=== PATIENT | female | born 1935 | race Caucasian/White ===

== ENCOUNTER 2019-01-16 12:42 | Inpatient (IN) ==
[2019-01-16] MEDS ORDERED: PANTOprazole 40 MG in SYRINGE 0 ML IV ONE (14:40)
[2019-01-16] MEDS ORDERED: SODIUM CHLORIDE 0.9% 1000ML 1,000 ML IV SCH (14:45)
[2019-01-16 15:16] LABS: Basophils # (auto) 0.02 K/uL (0-0.2); Basophils % (auto) 0.2 %; Eosinophils # (auto) 0.01 K/uL (0-0.5); Eosinophils % (auto) 0.1 %; Hematocrit (blood only) 43.1 % (37-47); Immature Granulocytes # (auto) 0.04 K/uL (0.00-0.02); Immature Granulocytes % (auto) 0.3 %; Lymphocytes # (auto) 0.77 K/uL (1.2-3.4); Lymphocytes % (auto) 5.9 %; Mean Corpuscular Hgb Conc 32.5 g/dL (32-36); Mean Corpuscular Volume 86.5 fL (80-100); Mean Platelet Volume 10.5 fL (7.4-10.4); Monocytes # (auto) 0.51 K/uL (0.11-0.59); Monocytes % (auto) 3.9 %; Neutrophils # (auto) 11.64 K/uL (1.4-6.5); Neutrophils % (auto) 89.6 %; Platelet Count 279 K/uL (130-400); RDW Coefficient of Variation 14.5 % (11.5-14.5); RDW Standard Deviation 45.6 fL (36.4-46.3); Red Blood Count 4.98 M/uL (4.2-5.4); White Blood Count 12.99 K/uL (4.8-10.8)
[2019-01-16 15:38] LABS: Albumin Level 3.3 gm/dl (3.4-5.0); BUN Creatinine Ratio 17.2 (10-20); Calcium 10.6 mg/dl (8.5-10.1); Creatinine Clr Calc Pharmacy 26.6 ml/min; Est GFR (African American) 39.8; Est GFR (Non-African American) 34.4; Magnesium 2.2 mg/dl (1.8-2.4); Potassium 4.4 mmol/L (3.5-5.1)
[2019-01-16 15:44] LABS: Albumin Globulin Ratio 0.8 (0.9-2); Bilirubin,Total 0.5 mg/dl (0.2-1); Total Protein 7.3 gm/dl (6.4-8.2); Troponin I 0.027 ng/ml (0-0.045)
[2019-01-16] MEDS ORDERED: IOVERSOL 100ml IV PRN (19:10)
--- NOTE | 2019-01-16 19:18 | CT Scan Report ---
CT abd pelvis oral and IV con CT DOSE: 314.81 mGy.cm HISTORY: weight loss, recurrent vomiting TECHNIQUE: Multiaxial CT images of the abdomen and pelvis were performed following the use of intrave nous and oral contrast. A dose lowering technique was utilized adhering to the principles of ALARA. COMPARISON STUDY: None. FINDINGS: Diffuse bibasilar bronchiectatic change. Liver spleen and pancreas are unremarkable. Prior cholecystectomy. Normal adrenal glands. Several small parapelvic and/or cortical cysts of the kidneys . No evidence for hydronephrosis. Moderate distal esophageal wall thickening associated with a small hiatal hernia. Radiopaque material throughout the bowel consistent with oral medication. Findings of chronic sigmoid diverticulosis. Po tential minimal superimposed acute diverticular change. Trace pericolonic infiltrative change. Nonobstructive bowel pattern. Operative changes consistent with a prior left hip pinning as well as o perative changes to the mid shaft right femur. IMPRESSION: 1. Chronic sigmoid diverticulosis with potential trace amount of superimposed acute diverticular cisse ge. 2. No evidence for abscess collection or obstruction. 3. Small bilateral renal cysts. 4. Diffuse bibasilar bronchiectatic and fibrotic change. 6. Moderate distal esophageal wall thickening associated with a small hiatal hernia. The above report was generated using voice recognition software. It may contain grammatical, syntax or spelling errors. Electronically signed by: Genaro Ruiz M.D. 01/16/2019 7:16 PM
[2019-01-16] MEDS ORDERED: SUCRALFATE 1 GM/10 ML UDC PO STA (19:36)
[2019-01-16] MEDS ORDERED: AMOXICILLIN/CLAVULANATE 875 MG TAB PO ONE (19:36)
--- NOTE | 2019-01-16 21:09 | History & Physical Report ---
Date of Service January 16, 2019 Assessment & Plan (1) Vomiting: -Admit to [facility] -Patient presenting from home with poor appetite for the past few weeks and persistent vomiting that began last evening -Patient recently admitted to [facility] for very similar symptoms. Patient underwent EGD that admission that demonstrated esophagitis and a large duodenal diverticulum causing possible gastric outlet obstruction. Patient underwent an upper GI series that did not demonstrate any current obstruction. Patient was started on PPI twice daily and Reglan. -Reports of possible coffee-ground emesis, however noted stable hemoglobin at 14.0 today, doubt active GI bleeding -CT ABD/pelvis in the ED demonstrates distal esophageal wall thickening -will start IV PPI twice daily and p.o. Carafate suspension, continue Reglan -Clear liquids, n.p.o. after midnight for possible GI procedure tomorrow -GI consult (2) Urinary symptom or sign: -Patient started on Macrobid on 01/14 as an outpatient for possible UTI however no urine sample was obtained -Obtain UA and start antibiotic accordingly (3) HTN (hypertension): -Continue lisinopril and metoprolol (4) DM type 2 (diabetes mellitus, type 2): -Hgb A1c 7.0 07/2018 -Hold oral agents and utilize NovoLog per protocol while hospitalized (5) CKD (chronic kidney disease), stage III: - baseline creat runs in the low ones - creat noted to be 1.4 today - continue to monitor, avoid nephrotoxic agents when able (6) Dyslipidemia: -Continue statin (7) Hypothyroidism: -Continue levothyroxine (8) Anxiety: -Continue sertraline (9) Alzheimer disease: -Continue donepezil (10) DVT prophylaxis: -SCDs due to reported coffee-ground emesis History of Present Illness Chief Complaint: Vomiting Primary Care Provider: Walter Knight MD 83-year-old female who presents the ED with vomiting. Patient is accompanied by her caregiver, Suzy, who provides some history. Patient was recently admitted to [facility] 12/27 through 12/29 for similar symptoms. Patient underwent EGD that admission that demonstrated esophagitis and a large duodenal diverticulum causing possible gastric outlet obstruction. Patient underwent an upper GI series that did not demonstrate any current obstruction. Patient was started on PPI twice daily and Reglan. Since arriving home, patient's appetite has not improved and she has early satiety. She developed vomiting again last evening and has had several episodes since. Caregiver describes emesis as coffee-ground material. Stools are dark, however this is chronic secondary to iron re placement. No bright red bleeding per rectum. Patient denies abdominal pain and diarrhea. No chest pain or shortness of breath. She denies lightheadedness, dizziness, diaphoresis, syncopal events. No fevers or chills. Of note, patient was started on Macrobid as an outpatient on 01/14 for possible UTI. In the ED today, patient is hemodynamically stable and hemoglobin is 14.0. CT ABD/pelvis is showing distal esophageal wall thickening and is negative for other acute findings. Patient was given IVF, IV Protonix, p.o. Carafate. Allergies Allergy/AdvReac Type Severity Reaction Status Date / Time solifenacin [From Vesicare] Allergy Intermediate Hives Verified 01/16/19 15:08 ciprofloxacin AdvReac Severe DEMENTIA/CO Verified 01/16/19 15:08 NFUSION amlodipine AdvReac Intermediate EDEMA Verified 01/16/19 15:08 pravastatin [From Pravachol] AdvReac Intermediate ITCHY RASH Verified 01/16/19 15:08 Home Medications Home Medications Medication Instructions Recorded Confirmed Type acetaminophen [Tylenol] 325 mg PO Q8 PRN 01/16/19 01/16/19 History calcium carbonate [Tums] 200 mg PO DIRECTED PRN 01/16/19 01/16/19 History cyproheptadine 4 mg PO TID PRN 01/16/19 01/16/19 History donepezil 5 mg PO QDD 01/16/19 01/16/19 History erythromycin 1 applic OPHTHALMIC (EYE) DAILY PRN 01/16/19 01/16/19 History ferrous sulfate 324 mg PO DAILY 01/16/19 01/16/19 History glimepiride 4 mg PO DAILYBB 01/16/19 01/16/19 History levothyroxine 50 mcg PO DAILYBB 01/16/19 01/16/19 History lisinopril 20 mg PO DAILY 01/16/19 01/16/19 History metoclopramide HCl [Reglan] 5 mg PO ACHS 01/16/19 01/16/19 History metoprolol succinate 25 mg PO DAILY 01/16/19 01/16/19 History mirtazapine 15 mg PO HS 01/16/19 01/16/19 History nitrofurantoin monohyd/m-cryst 100 mg PO BID 01/16/19 01/16/19 History omeprazole 20 mg PO BID 01/16/19 01/16/19 History sertraline 50 mg PO DAILY 01/16/19 01/16/19 History Past Med/Surg History Medical History Hip fracture, left (Chronic) s/p repair CAD (coronary artery disease) (Chronic) Traumatic subdural hematoma (Chronic) Anxiety (Chronic) Alzheimer disease (Chronic) PVD (peripheral vascular disease) (Chronic) Pulmonary fibrosis (Chronic) CKD (chronic kidney disease), stage III (Chronic) HTN (hypertension) (Chronic) Dyslipidemia (Chronic) Hypothyroidism (Chronic) DM type 2 (diabetes mellitus, type 2) (Chronic) Surgical History History of left-sided carotid endarterectomy (Chronic) History of cataract surgery (Chronic) H/O oophorectomy (Chronic) Hx of cholecystectomy (Chronic) History of total right knee replacement (Chronic) Family History Other Family history non-contributory Social History Preferred Language: Cambodian Communication Ability: Effective Brush Material Preparer Required: No Beliefs That Will Affect Care: None Current Living Situation: Other Current Living Situation Comment: Lives with Padma Aparicio, caregiver current occupational status: retired Other Information That Helps Us Care for You: No Feels Safe at Home: Yes Safety Concerns: Feels Safe At This Time Smoking Status: Never smoker Hx Alcohol Use: No Hx Substance Use: No Review of Systems ROS per HPI, all other systems reviewed and negative Physical Exam Vital Signs (Past 24 Hours): Last Vital Signs Temp 36.8 C 01/16/19 12:48 Pulse 85 01/16/19 19:19 Resp 20 01/16/19 19:19 BP 170/81 H 01/16/19 19:19 Pulse Ox 94 01/16/19 19:19 Constitutional: WD/WN, vitals as above Eyes: PERRL, conjunctivae normal, anicteric sclerae ENMT: external ear and nose normal, oropharynx normal Respiratory: normal respiratory effort, lungs clear to auscultation Cardiovascular: Rate/Rhythm: regular rate and regular rhythm Vessels: normal peripheral pulses Extremities: no edema Gastrointestinal (Abdomen): normal bowel sounds, soft, nontender, no hepatosplenomegaly Musculoskeletal: no cyanosis or clubbing, extremities motor strength 5/5 Skin: no rashes, warm and dry Neurologic: PERRL, EOMI, accommodation nl, no face palsy, no dysarthria Psychiatric: A+Ox3, euthymic affect (Forgetful) Insight: + limited insight Results & Data Laboratory Results Laboratory Last Values WBC 12.99 K/uL (4.8-10.8) H 01/16/19 15:01 RBC 4.98 M/uL (4.2-5.4) 01/16/19 15:01 Hgb 14.0 g/dL (12.0-16.0) 01/16/19 15:01 Hct 43.1 % (37-47) 01/16/19 15:01 MCV 86.5 fL (80-100) 01/16/19 15:01 MCH 28.1 pg (25-34) 01/16/19 15:01 MCHC 32.5 g/dL (32-36) 01/16/19 15:01 RDW Std Deviation 45.6 fL (36.4-46.3) 01/16/19 15:01 RDW Coeff of Santiago 14.5 % (11.5-14.5) 01/16/19 15:01 Plt Count 279 K/uL (130-400) 01/16/19 15:01 MPV 10.5 fL (7.4-10.4) H 01/16/19 15:01 Immature Gran % (Auto) 0.3 % 01/16/19 15:01 Neut % (Auto) 89.6 % 01/16/19 15:01 Lymph % (Auto) 5.9 % 01/16/19 15:01 Routt % (Auto) 3.9 % 01/16/19 15:01 Eos % (Auto) 0.1 % 01/16/19 15:01 Baso % (Auto) 0.2 % 01/16/19 15:01 Immature Gran # (Auto) 0.04 K/uL (0.00-0.02) H 01/16/19 15:01 Neut # (Auto) 11.64 K/uL (1.4-6.5) H 01/16/19 15:01 Lymph # (Auto) 0.77 K/uL (1.2-3.4) L 01/16/19 15:01 Routt # (Auto) 0.51 K/uL (0.11-0.59) 01/16/19 15:01 Eos # (Auto) 0.01 K/uL (0-0.5) 01/16/19 15:01 Baso # (Auto) 0.02 K/uL (0-0.2) 01/16/19 15:01 Sodium 139 mmol/L (136-145) 01/16/19 15:01 Potassium 4.4 mmol/L (3.5-5.1) 01/16/19 15:01 Chloride 101 mmol/L (98-107) 01/16/19 15:01 Carbon Dioxide 31 mmol/L (21-32) 01/16/19 15:01 Anion Gap 7.0 (3-11) 01/16/19 15:01 BUN 24 mg/dl (7-18) H 01/16/19 15:01 Creatinine 1.41 mg/dl (0.6-1.2) H 01/16/19 15:01 Est Cr Clr Drug Dosing 26.6 ml/min 01/16/19 15:01 Est GFR ( Amer) 39.8 01/16/19 15:01 Est GFR (Non-Af Amer) 34.4 01/16/19 15:01 BUN/Creatinine Ratio 17.2 (10-20) 01/16/19 15:01 Glucose 215 mg/dl (70-99) H 01/16/19 15:01 Calcium 10.6 mg/dl (8.5-10.1) H 01/16/19 15:01 Magnesium 2.2 mg/dl (1.8-2.4) 01/16/19 15:01 Total Bilirubin 0.5 mg/dl (0.2-1) 01/16/19 15:01 AST 15 U/L (15-37) 01/16/19 15:01 ALT 11 U/L (12-78) L 01/16/19 15:01 Alkaline Phosphatase 92 U/L (45-117) 01/16/19 15:01 Troponin I 0.027 ng/ml (0-0.045) 01/16/19 15:01 Total Protein 7.3 gm/dl (6.4-8.2) 01/16/19 15:01 Albumin 3.3 gm/dl (3.4-5.0) L 01/16/19 15:01 Globulin 4.0 gm/dl (2.5-4.0) 01/16/19 15:01 Albumin/Globulin Ratio 0.8 (0.9-2) L 01/16/19 15:01 Lipase 94 U/L (73-393) 01/16/19 15:01 Blood Type A Negative 01/16/19 15: Antibody Screen NEGATIVE 01/16/19 15:[address] ABD/PELVIS IMPRESSION: 1. Chronic sigmoid diverticulosis with potential trace amount of superimposed acute diverticular change. 2. No evidence for abscess collection or obstruction. 3. Small bilateral renal cysts. 4. Diffuse bibasilar bronchiectatic and fibrotic change. 6. Moderate distal esophageal wall thickening associated with a small hiatal hernia. Code Status & VTE Plan Code Status Patient is a DNR as per my discussion with her and her POSu Almonte who is the bedside. VTE Prophylaxis Plan VTE Prophylaxis will be ordered: Yes Supervising Physician Co-Signing Physician Notes Care coordinated with Catia Mitchell NP. Agree with above note. Patient seen and examined. Please refer to her notes for full details. Vital signs reviewed. Physical exam: General exam: Alert and oriented. Not in acute distress. CVS: S1 and S2 heard, regular rate and rhythm, no murmurs. RS: Clear to auscultation, no wheezing or crackles. ABD: Soft, bowel sounds present, nontender, no distention. QUALITY HEAD: Nonfocal. EXT: No edema, no erythema. Labs: Reviewed. Assessment and plan: 83 Y F presents with nausea and vomiting and poor oral intake. Nausea and vomiting Coffee ground? hb stable recently admitted to [facility] with similar complaints and was s/p egd which showed oesophagitis and large duodenal diverticulum. question of diverticulum causing gastric outlet obstruction and GI series was done which showed delayed gastric emptying but no mechanical obstruction. patient was discharged on ppi and reglan to followup in 2months. But since yesterday again started to have same symptoms Ct scan in [place] showed disatal oesophaus thickening . Hb stable Started on iv ppi, carafate, npo, Gi consult. DM iss will monitor Other diagnosis and plan of care as per Catia Mitchell KETTLE COORDINATOR. Rogerio kay MD.
[2019-01-16] MEDS ORDERED: DEXTROSE 50% 50 ML SYRINGE IV PRN (21:26)
[2019-01-16] MEDS ORDERED: GLUCOSE 10 TABS/TUBE PO PRN (21:26)
[2019-01-16] MEDS ORDERED: CARBOHYDRATES FOR HYPOGLYCEMIA PO PRN (21:26)
[2019-01-16] MEDS ORDERED: INSULIN ASPART 100 UNITS/ML 3 ML PEN SC SCH (21:26)
[2019-01-16] MEDS ORDERED: GLUCAGON FOR INJ 1 MG VIAL SQ PRN (21:26)
[2019-01-16] MEDS ORDERED: GLUCOSE 40% GEL 15 GM TUBE PO PRN (21:26)
[2019-01-16] MEDS: MIRTAZAPINE TAB 15 MG TAB PO SCH (22:29)
[2019-01-16] MEDS: SODIUM CHLORIDE 0.9% 1000ML 1,000 ML IV SCH (22:29)
[2019-01-16] MEDS: SUCRALFATE 1 GM/10 ML UDC PO SCH (22:29)
[2019-01-16] MEDS: METOCLOPRAMIDE HCL 5 MG TABLET PO SCH (22:29)
[2019-01-16 23:36] LABS: Appearance Urine Clear (Clear); Bacteria Urine Automated Negative (Negative); Bilirubin Urine Negative (Negative); Blood Urine Negative (Negative); Color Urine Yellow; Glucose Urine UA Negative (Negative); Ketones Urine Trace (Negative); Leukocyte Esterase Urine Negative (Negative); Nitrite Urine Negative (Negative); RBC Urine Automated 0-4 /hpf (0-4); Specific Gravity Urine > 1.045 (1.000-1.030); Urobilinogen Urine Negative (Negative); WBC Urine Automated >30 /hpf (0-5); pH Urine >= 9.0 (4.5-7.5)
--- NOTE | 2019-01-16 23:47 | Emergency Department Note ---
Entered by Jayden Clark acting as a scribe for History of Present Illness General Chief complaint: Vomiting Stated complaint: THROWING UP/BROWN Time Seen by Provider: 01/16/19 14:27 Source: patient and friends Limitations: no limitations History of Present Illness Provider complaint: Vomit/Coffee Ground Onset (ago): week(s) (>3) Location: abdomen (Vomiting) Pain Consistency: + intermittent Quality: + other (vomiting) Associated symptoms: + other (Coffee ground emesis ) Treatments prior to arrival: other (GI endoscopy scope, started on "stomach medication" ) The patient is an 83 year old female who presents to the Emergency Room with complaints of intermittent vomiting for the past several weeks. The patient's close friend at bedside states that the patient has been vomiting intermittently for over 3 weeks. The friend describes the vomiting as "brown" and as resembling "coffee grounds." Last night she estimates that the patient vomited 2 courts of coffee ground emesis. The patient did have an evaluation by gastroeneterology 3 weeks ago and had an endoscopy performed. There was an abnormality found in the stomach and the patient was started on a PPI daily. The friend notes that the patient's stool has looked "very dark, but not black." The patient denies any abdominal pain or noticing any blood in her stool. She has never had a colonoscopy. The friend adds that the patient has taken TUMS daily for quite some time. Friend at bedside also states patient has been losing weight due to poor p.o. intake. Patient's friend is her power of patent prosecution attorney. Home Medications Home Medications Medication Instructions Recorded Confirmed Type acetaminophen [Tylenol] 325 mg PO Q8 PRN 01/16/19 01/16/19 History calcium carbonate [Tums] 200 mg PO DIRECTED PRN 01/16/19 01/16/19 History cyproheptadine 4 mg PO TID PRN 01/16/19 01/16/19 History donepezil 5 mg PO QDD 01/16/19 01/16/19 History erythromycin 1 applic OPHTHALMIC (EYE) DAILY PRN 01/16/19 01/16/19 History ferrous sulfate 324 mg PO DAILY 01/16/19 01/16/19 History glimepiride 4 mg PO DAILYBB 01/16/19 01/16/19 History levothyroxine 50 mcg PO DAILYBB 01/16/19 01/16/19 History lisinopril 20 mg PO DAILY 01/16/19 01/16/19 History metoclopramide HCl [Reglan] 5 mg PO ACHS 01/16/19 01/16/19 History metoprolol succinate 25 mg PO DAILY 01/16/19 01/16/19 History mirtazapine 15 mg PO HS 01/16/19 01/16/19 History nitrofurantoin monohyd/m-cryst 100 mg PO BID 01/16/19 01/16/19 History omeprazole 20 mg PO BID 01/16/19 01/16/19 History sertraline 50 mg PO DAILY 01/16/19 01/16/19 History Allergies Allergy/AdvReac Type Severity Reaction Status Date / Time solifenacin [From Vesicare] Allergy Intermediate Hives Verified 01/16/19 15:08 ciprofloxacin AdvReac Severe DEMENTIA/CO Verified 01/16/19 15:08 NFUSION amlodipine AdvReac Intermediate EDEMA Verified 01/16/19 15:08 pravastatin [From Pravachol] AdvReac Intermediate ITCHY RASH Verified 01/16/19 15:08 Past Med/Surg History Medical History Hip fracture, left (Chronic) s/p repair CAD (coronary artery disease) (Chronic) Traumatic subdural hematoma (Chronic) Anxiety (Chronic) Alzheimer disease (Chronic) PVD (peripheral vascular disease) (Chronic) Pulmonary fibrosis (Chronic) CKD (chronic kidney disease), stage III (Chronic) HTN (hypertension) (Chronic) Dyslipidemia (Chronic) Hypothyroidism (Chronic) DM type 2 (diabetes mellitus, type 2) (Chronic) Surgical History History of left-sided carotid endarterectomy (Chronic) History of cataract surgery (Chronic) H/O oophorectomy (Chronic) Hx of cholecystectomy (Chronic) History of total right knee replacement (Chronic) Family History Other Family history non-contributory Social History Preferred Language: Kiswahili Communication Ability: Effective Coroner'S Juror Required: No Beliefs That Will Affect Care: None Current Living Situation: Other Current Living Situation Comment: Lives with Padma Aparicio, caregiver current occupational status: retired Other Information That Helps Us Care for You: No Feels Safe at Home: Yes Safety Concerns: Feels Safe At This Time Smoking Status: Never smoker Hx Alcohol Use: No Hx Substance Use: No Review of Systems See HPI for pertinent positives & negatives. and A total of 10 systems reviewed and were otherwise negative Physical Exam Vital Signs Vital Signs - 24 hr 01/16/19 12:48 01/16/19 15:31 01/16/19 16:15 Temperature 36.8 C Temperature Source Oral Sepsis Recent Fever Within 48 Hours No Sepsis Action Taken by Nursing No Action Required Pulse Rate - Lying 96 H Pulse Rate - Sitting 108 H Pulse Rate - Standing 109 H Pulse Rate 101 H Pulse Rate [Finger] 61 Respiratory Rate 20 18 Respiratory Effort / Characteristics Non-Labored Spontaneous Respiratory Depth Normal Respiratory Pattern Regular Blood Pressure - Lying 229/110 H Blood Pressure - Sitting 182/126 H Blood Pressure- Standing 160/105 H Blood Pressure 122/74 Blood Pressure [Left Arm] 186/96 H Blood Pressure Mean 90 Blood Pressure Mean [Left Arm] 126 Pulse Oximetry 93 96 Oxygen Delivery Method Room Air Room Air 01/16/19 17:08 01/16/19 18:00 01/16/19 19:19 Temperature Temperature Source Sepsis Recent Fever Within 48 Hours Sepsis Action Taken by Nursing Pulse Rate - Lying Pulse Rate - Sitting Pulse Rate - Standing Pulse Rate Pulse Rate [Finger] 100 H 94 H 85 Respiratory Rate 19 23 20 Respiratory Effort / Characteristics Non-Labored Respiratory Depth Normal Respiratory Pattern Regular Blood Pressure - Lying Blood Pressure - Sitting Blood Pressure- Standing Blood Pressure Blood Pressure [Left Arm] 160/105 H 184/96 H 170/81 H Blood Pressure Mean Blood Pressure Mean [Left Arm] 123 125 110 Pulse Oximetry 93 93 94 Oxygen Delivery Method Room Air Room Air Room Air 01/16/19 20:00 01/16/19 21:00 01/16/19 21:16 Temperature Temperature Source Sepsis Recent Fever Within 48 Hours Sepsis Action Taken by Nursing Pulse Rate - Lying Pulse Rate - Sitting Pulse Rate - Standing Pulse Rate Pulse Rate [Finger] 88 91 H Respiratory Rate 22 22 Respiratory Effort / Characteristics Non-Labored Respiratory Depth Normal Respiratory Pattern Regular Blood Pressure - Lying Blood Pressure - Sitting Blood Pressure- Standing Blood Pressure Blood Pressure [Left Arm] 155/76 H 163/87 H Blood Pressure Mean Blood Pressure Mean [Left Arm] 102 112 Pulse Oximetry 91 93 93 Oxygen Delivery Method Room Air Room Air Room Air 01/16/19 22:08 Temperature Temperature Source Sepsis Recent Fever Within 48 Hours Sepsis Action Taken by Nursing Pulse Rate - Lying Pulse Rate - Sitting Pulse Rate - Standing Pulse Rate Pulse Rate [Finger] Respiratory Rate Respiratory Effort / Characteristics Non-Labored Spontaneous Respiratory Depth Normal Respiratory Pattern Regular Blood Pressure - Lying Blood Pressure - Sitting Blood Pressure- Standing Blood Pressure Blood Pressure [Left Arm] Blood Pressure Mean Blood Pressure Mean [Left Arm] Pulse Oximetry Oxygen Delivery Method Room Air GENERAL: alert, well appearing, well nourished, no distress, non-toxic EYE EXAM: normal conjunctiva, PERRL and EOM's grossly intact OROPHARYNX: no exudate, no erythema, lips, buccal mucosa, and tongue normal and mucous membranes are moist NECK: supple, no nuchal rigidity, no adenopathy, non-tender LUNGS: Clear to auscultation. Normal chest wall mechanics, no w/r/r HEART: no murmurs, S1 normal and S2 normal ABDOMEN: abdomen soft, non-tender, normo-active bowel sounds, no masses, no rebound or guarding. BACK: Back is symmetrical on inspection and there is no deformity, no midline tenderness, no CVA tenderness. SKIN: no rashes and no bruising UPPER EXTREMITIES: upper extremities are grossly normal. FROM, nml pulses b/l. LOWER EXTREMITIES: No pitting edema. FROM, nml pulses b/l. NEURO EXAM: Normal sensorium, cranial nerves II-XII grossly intact, normal speech, no gross weakness of arms, no gross weakness of legs. Course 142: Past medical records reviewed. The patient was evaluated in room C7, and a complete history and physical examination were performed. 1934: Patient and friend updated on results. Discussed concern given recurrent vomiting and continued weight loss despite recent endoscopy and initiation of a PPI. I feel the read of possible early diverticulitis is less likely. Patient given 1 dose of Augmentin as a precaution. I am more concerned that the Augmentin would continue to irritate her stomach. Patient did have vomiting here. Patient's H&H stable. 1956: I reviewed the patient's case with Dr. [facility] Hospitalist. He will evaluate the patient for further management. Administered Medications Sodium Chloride (Nss 1000ml) 1,000 mls @ 80 mls/hr IV .[id number] CASEY Stop: 02/15/19 21:25 Last Admin: 01/16/19 22:29 Dose: 80 mls/hr Documented by: [id number] Insulin Aspart (Novolog Flexpen) 0 units [facility] Stop: 02/15/19 21:25 Last Admin: 01/16/19 22:30 Dose: 1 units Documented by: [id number] Cosigned by: [id number] Metoclopramide HCl (Reglan) 5 mg PO [facility] Stop: 02/15/19 21:25 Last Admin: 01/16/19 22:29 Dose: 5 mg Documented by: [id number] Mirtazapine (Remeron) 15 mg PO [facility] Stop: 02/15/19 21:25 Last Admin: 01/16/19 22:29 Dose: 15 mg Documented by: [id number] Sucralfate (Carafate) 1 gm PO [facility] Stop: 02/15/19 21:25 Last Admin: 01/16/19 22:29 Dose: 1 gm Documented by: [id number] Discontinued Medications Amoxicillin/Clavulanate Potassium (Augmentin 875mg) 1 tab PO NOW ONE Stop: 01/16/19 19:37 Last Admin: 01/16/19 20:20 Dose: 1 tab Documented by: [id number] Pantoprazole Sodium 40 mg/ (Syringe) 10 mls @ 5 mls/min IV NOW ONE Stop: 01/16/19 14:41 Last Admin: 01/16/19 17:06 Dose: 5 mls/min Documented by: [id number] Sodium Chloride (Nss 1000ml) 1,000 mls @ 125 mls/hr IV .Q8H [facility] Stop: 02/15/19 14:44 Last Infusion: 01/16/19 22:38 Dose: 0 mls/hr Documented by: [id number] Admin: 01/16/19 17:06 Dose: 125 mls/hr Documented by: [id number] Ioversol (Optiray 320 100ml) 90 ml IV ONCE PRN PRN Reason: Interaction Checking Stop: 01/20/19 19:09 Last Admin: 01/16/19 19:10 Dose: 90 ml Documented by: [id number] Sucralfate (Carafate) 1 gm PO NOW STA Stop: 01/16/19 19:37 Last Admin: 01/16/19 20:20 Dose: 1 gm Documented by: [id number] Medical Decision Making Differential Diagnosis Differential diagnosis: Etiologies such as esophagitis, variceal bleed, [place], [place] tear, gastritis, peptic ulcer disease, AVM, inflammatory bowel disease, ischemia, diverticulosis, colitis, malignancy, coagulopathy, thrombocytopenia, fissure, hemorrhoid, epistaxis , as well as others were entertained. Medical Records Attestation: I reviewed the patient's medical records. Home Medications Current Medication List: was personally reviewed by me Laboratory Data Attestation: I reviewed the patient's lab results. Result diagrams: 01/16/19 15:01 01/16/19 15:01 Lab Results 01/16/19 01/16/19 01/16/19 Range/Units 15:01 15:01 15:01 WBC 12.99 H (4.8-10.8) K/uL RBC 4.98 (4.2-5.4) M/uL Hgb 14.0 (12.0-16.0) g/dL Hct 43.1 (37-47) % MCV 86.5 (80-100) fL MCH 28.1 (25-34) pg MCHC 32.5 (32-36) g/dL RDW Std Deviation 45.6 (36.4-46.3) fL RDW Coeff of [place] 14.5 (11.5-14.5) % Plt Count 279 (130-400) K/uL MPV 10.5 H (7.4-10.4) fL Immature Gran % (Auto) 0.3 % Neut % (Auto) 89.6 % Lymph % (Auto) 5.9 % [place] % (Auto) 3.9 % Eos % (Auto) 0.1 % Baso % (Auto) 0.2 % Immature Gran # (Auto) 0.04 H (0.00-0.02) K/uL Neut # (Auto) 11.64 H (1.4-6.5) K/uL Lymph # (Auto) 0.77 L (1.2-3.4) K/uL [place] # (Auto) 0.51 (0.11-0.59) K/uL Eos # (Auto) 0.01 (0-0.5) K/uL Baso # (Auto) 0.02 (0-0.2) K/uL Sodium 139 (136-145) mmol/L Potassium 4.4 (3.5-5.1) mmol/L Chloride 101 (98-107) mmol/L Carbon Dioxide 31 (21-32) mmol/L Anion Gap 7.0 (3-11) BUN 24 H (7-18) mg/dl Creatinine 1.41 H (0.6-1.2) mg/dl Est Cr Clr Drug Dosing 26.6 ml/min Est GFR ( Amer) 39.8 Est GFR (Non-Af Amer) 34.4 BUN/Creatinine Ratio 17.2 (10-20) Glucose 215 H (70-99) mg/dl POC Glucose (70-99) Calcium 10.6 H (8.5-10.1) mg/dl Magnesium 2.2 (1.8-2.4) mg/dl Total Bilirubin 0.5 (0.2-1) mg/dl AST 15 (15-37) U/L ALT 11 L (12-78) U/L Alkaline Phosphatase 92 (45-117) U/L Troponin I 0.027 (0-0.045) ng/ml Total Protein 7.3 (6.4-8.2) gm/dl Albumin 3.3 L (3.4-5.0) gm/dl Globulin 4.0 (2.5-4.0) gm/dl Albumin/Globulin Ratio 0.8 L (0.9-2) Lipase 94 (73-393) U/L Blood Type A Negative Antibody Screen NEGATIVE 01/16/19 Range/Units 22:08 WBC (4.8-10.8) K/uL RBC (4.2-5.4) M/uL Hgb (12.0-16.0) g/dL Hct (37-47) % MCV (80-100) fL MCH (25-34) pg MCHC (32-36) g/dL RDW Std Deviation (36.4-46.3) fL RDW Coeff of [place] (11.5-14.5) % Plt Count (130-400) K/uL MPV (7.4-10.4) fL Immature Gran % (Auto) % Neut % (Auto) % Lymph % (Auto) % [place] % (Auto) % Eos % (Auto) % Baso % (Auto) % Immature Gran # (Auto) (0.00-0.02) K/uL Neut # (Auto) (1.4-6.5) K/uL Lymph # (Auto) (1.2-3.4) K/uL [place] # (Auto) (0.11-0.59) K/uL Eos # (Auto) (0-0.5) K/uL Baso # (Auto) (0-0.2) K/uL Sodium (136-145) mmol/L Potassium (3.5-5.1) mmol/L Chloride (98-107) mmol/L Carbon Dioxide (21-32) mmol/L Anion Gap (3-11) BUN (7-18) mg/dl Creatinine (0.6-1.2) mg/dl Est Cr Clr Drug Dosing ml/min Est GFR ( Amer) Est GFR (Non-Af Amer) BUN/Creatinine Ratio (10-20) Glucose (70-99) mg/dl POC Glucose 141 H (70-99) Calcium (8.5-10.1) mg/dl Magnesium (1.8-2.4) mg/dl Total Bilirubin (0.2-1) mg/dl AST (15-37) U/L ALT (12-78) U/L Alkaline Phosphatase (45-117) U/L Troponin I (0-0.045) ng/ml Total Protein (6.4-8.2) gm/dl Albumin (3.4-5.0) gm/dl Globulin (2.5-4.0) gm/dl Albumin/Globulin Ratio (0.9-2) Lipase (73-393) U/L Blood Type Antibody Screen Imaging Data Attestation: I personally reviewed and interpreted this imaging study as follows: Radiologist's Impression: CT abd pelvis oral and IV con CT DOSE: 314.81 mGy.cm HISTORY: weight loss, recurrent vomiting TECHNIQUE: Multiaxial CT images of the abdomen and pelvis were performed following the use of intravenous and oral contrast. A dose lowering technique was utilized adhering to the principles of ALARA. COMPARISON STUDY: None. FINDINGS: Diffuse bibasilar bronchiectatic change. Liver spleen and pancreas are unremarkable. Prior cholecystectomy. Normal adrenal glands. Several small parapelvic and/or cortical cysts of the kidneys. No evidence for hydronephrosis. Moderate distal esophageal wall thickening associated with a small hiatal hernia. Radiopaque material throughout the bowel consistent with oral medication. Findings of chronic sigmoid diverticulosis. Potential minimal superimposed acute diverticular change. Trace pericolonic infiltrative change. Nonobstructive bowel pattern. Operative changes consistent with a prior left hip pinning as well as operative changes to the mid shaft right femur. IMPRESSION: 1. Chronic sigmoid diverticulosis with potential trace amount of superimposed acute diverticular change. 2. No evidence for abscess collection or obstruction. 3. Small bilateral renal cysts. 4. Diffuse bibasilar bronchiectatic and fibrotic change. 6. Moderate distal esophageal wall thickening associated with a small hiatal her konstantin. The above report was generated using voice recognition software. It may contain grammatical, syntax or spelling errors. Electronically signed by: Genaro Ruiz M.D. 01/16/2019 7:16 PM ECG Data Attestation: I personally reviewed and interpreted this ECG as follows: Indication: nausea and vomiting Rate (beats per minute): 94 Rhythm: sinus rhythm Findings: + other (normal axis); no acute ischemic change and no ectopy Blood Pressure Blood Pressure Findings: Elevated blood pressure Blood Pressure Disposition: further management by hospitalist MDM Narrative Patient here in no acute distress, although reported vomiting by friend/power of patent prosecution attorney prior to arrival. Patient did have vomiting then when ingesting the contrast here. Patient with no abdominal pain on exam. No evidence of acute vascular etiology. I feel diverticulitis is less likely despite radiology read on CT. Patient's labs reassuring. Patient with mild renal insufficiency noted with a creatinine of 1.4. Patient is H&H stable. No evidence of bacteremia/sepsis. Patient was given IV Protonix as a precaution. Concern for persistence of symptoms and need for additional GI evaluation. Patient's power of patent prosecution attorney would prefer patient to be admitted also given that she continues to have vomiting at home. Case discussed with hospitalist for additional evaluation and management. Impression & Plan Vomiting, Diverticulitis, Weight loss Discharge Plan Visit Data *Final* Discharge Date/Time: 01/16/19 21:16 Chief Complaint: Vomiting Stated Complaint: THROWING UP/BROWN ED Provider: Pheasant,Addie S Discharge Problem: Vomiting, Diverticulitis, Weight loss Patient Disposition: Admitted As Inpatient Discharge Instructions Interventions: ED Discharge Assessment Last Done: 01/16/19 21:16 The scribe's documentation has been prepared under my direction and personally reviewed by me in its entirety. I confirm that the note above accurately reflects all work, treatment, procedures, and medical decision making performed by me.
[2019-01-17 00:18] LABS: Protein Urine Negative (Negative)
[2019-01-17] MEDS ORDERED: Nursing to Pharmacy Communication ONE (01:53)
[2019-01-17] MEDS: LEVOTHYROXINE SODIUM 50 MCG TABLET PO SCH (06:20)
[2019-01-17] MEDS: INSULIN ASPART 100 UNITS/ML 3 ML PEN SC SCH ×4 (06:22→21:22)
[2019-01-17 07:09] LABS: Hematocrit (blood only) 34.4 % (37-47); Hemoglobin 10.9 g/dL (12.0-16.0); Mean Corpuscular Hgb Conc 31.7 g/dL (32-36); Mean Corpuscular Volume 87.1 fL (80-100); Mean Platelet Volume 10.4 fL (7.4-10.4); Platelet Count 218 K/uL (130-400); RDW Coefficient of Variation 14.7 % (11.5-14.5); RDW Standard Deviation 46.8 fL (36.4-46.3); Red Blood Count 3.95 M/uL (4.2-5.4); White Blood Count 8.98 K/uL (4.8-10.8)
[2019-01-17 07:48] LABS: BUN Creatinine Ratio 21.5 (10-20); Calcium 8.6 mg/dl (8.5-10.1); Creatinine Clr Calc Pharmacy 36.6 ml/min; Est GFR (African American) 59.6; Est GFR (Non-African American) 51.4; Potassium 3.4 mmol/L (3.5-5.1)
[2019-01-17] MEDS: SUCRALFATE 1 GM/10 ML UDC PO SCH ×4 (08:36→21:10)
[2019-01-17] MEDS: PANTOprazole 40 MG in SYRINGE 0 ML IV SCH ×2 (08:36→21:10)
[2019-01-17] MEDS: METOCLOPRAMIDE HCL 5 MG TABLET PO SCH ×4 (08:36→21:10)
[2019-01-17] MEDS: LISINOPRIL 20 MG TAB PO SCH (08:37)
[2019-01-17] MEDS: SERTRALINE HCL 50 MG TABLET PO SCH (08:37)
[2019-01-17] MEDS: FERROUS SULFATE 325 MG TAB PO SCH (08:37)
[2019-01-17] MEDS: METOPROLOL SUCC 25MG EXT REL TAB PO SCH (08:37)
[2019-01-17] MEDS: SODIUM CHLORIDE 0.9% 1000ML 1,000 ML IV SCH (10:05)
--- NOTE | 2019-01-17 10:08 | Gastrointestinal Consultation ---
Date of Consultation January 17, 2019 Assessment & Plan (1) Esophagitis: 83 year old female with known grade D reflux esophagitis, small HH and large duodenal diverticulum w/ compression of the second portion of the duodenum w/ previous concern for intermittent GOO secondary to duodenal compression. She is currently asymptomatic denying abd pain, nausea or vomiting w/o CT evidence of acute changes - PPI BID indefinitely - Can consider repeat UGI series - Consider gastric emptying scan - Gastroparesis diet - Low residue diet - Smaller, more frequent meals - No plan for inpatient EGD as she is clinically stable Thank you for allowing us to participate in the care of this patient. Please call with any acute changes, questions or concerns. Please see addendum below with additional recommendation from my supervising physician. Present on Admission?: Yes Supervising Physician Co-Signing Physician Notes Attending attestation I have seen, examined this patient, and agree with the findings and above by our mid-level provider ADELINA Sahu. -Doing well with repeat admission over the last month of nausea vomiting, no nausea or vomiting since admission. Completely asymptomatic. -No esophagitis, agree with the addition of Carafate, no signs of obstruction on CT, would advance diet with clears and then will evaluate. -EGD 2 weeks ago with esophagitis and a large duodenal diverticulum but no change in presentation so unsure of utility in repeating. History of Present Illness Reason for Consultation: N/V esophagitis Requesting Physician: Simone Attending Physician: Ida Nichols MD History of Present Illness 83 year old female w/ hisotry of T2DM, dyslipidemia, HTN who presents from home with report of N/V. Pt was seen and evaluated, chart reviewed. She is a poor historian. Known from previous admission less than a month ago at [facility]. She recalls have EGD done at this admission. This AM her only complaints is fatigue. She denies abd pain. No nausea. No vomiting. No GERD. Denies hematemesis or coffee ground emesis prior to arrival. Moves bowels well. No black or bloody stools. No weight loss, fever, chills, CP, SOB. CT ABD/Pelvis 2019: Chronic sigmoid diverticulosis with potential trace amount of superimposed acute diverticular change. No evidence for abscess collection or obstruction.Small bilateral renal cysts.Diffuse bibasilar bronchiectatic and fibrotic change. Moderate distal esophageal wall thickening associated with a small hiatal hernia UGI series 2019: Severe reflux esophagitis. There is delayed gastric emptying, but the underlying cause appears to be physiologic rather than mechanical. Diminished gastric peristalsis. No evidence of mechanical gastric outlet obstruction at this time. EGD 2019: LA Grade D reflux esophagitis. Small hiatal hernia. Large duodenal diverticulum, with compression of the second portion of the duodenum. It may be possible that pt has gastric outlet obstruction due to duodenal compression from duodenaldiverticulcum. ERCP 2017: One visibly patent stent from the biliary tree wasseen in the major papilla. Prior biliary endoscopic sphincterotomy appeared open. The patient has had a cholecystectomy. One stent was removed from the biliary tree.The biliary tree was swept and sludge was found. Indomethacin given to decrease risk of post-ERCPpancreatitis. ERCP 2017: The major papilla appeared to be small. Biliary papillary stenosis, benign. The entire main bile duct was moderately dilated.Choledocholithiasis was found. Complete removal wasaccomplished by biliary sphincterotomy and balloonextraction. A biliary sphincterotomy was performed. the lower third of the main bile duct was successfully dilated. The biliary tree was swept. One biliary stent was placed into the common bile duct. Indomethacin given to decrease risk of post-ERCPpancreatitis. EGD 2016: this was arranged for dysphagia but cancelled for HTN, pt did not reschedule Colonoscopy 2006: this was cancelled, pt did not rescheudle Allergies Allergy/AdvReac Type Severity Reaction Status Date / Time solifenacin [From Vesicare] Allergy Intermediate Hives Verified 01/16/19 15:08 ciprofloxacin AdvReac Severe DEMENTIA/CO Verified 01/16/19 15:08 NFUSION amlodipine AdvReac Intermediate EDEMA Verified 01/16/19 15:08 pravastatin [From Pravachol] AdvReac Intermediate ITCHY RASH Verified 01/16/19 15:08 Home Medications Home Medications Medication Instructions Recorded Confirmed Type acetaminophen [Tylenol] 325 mg PO Q8 PRN 01/16/19 01/16/19 History calcium carbonate [Tums] 200 mg PO DIRECTED PRN 01/16/19 01/16/19 History cyproheptadine 4 mg PO TID PRN 01/16/19 01/16/19 History donepezil 5 mg PO QDD 01/16/19 01/16/19 History erythromycin 1 applic OPHTHALMIC (EYE) DAILY PRN 01/16/19 01/16/19 History ferrous sulfate 324 mg PO DAILY 01/16/19 01/16/19 History glimepiride 4 mg PO DAILYBB 01/16/19 01/16/19 History levothyroxine 50 mcg PO DAILYBB 01/16/19 01/16/19 History lisinopril 20 mg PO DAILY 01/16/19 01/16/19 History metoclopramide HCl [Reglan] 5 mg PO ACHS 01/16/19 01/16/19 History metoprolol succinate 25 mg PO DAILY 01/16/19 01/16/19 History mirtazapine 15 mg PO HS 01/16/19 01/16/19 History nitrofurantoin monohyd/m-cryst 100 mg PO BID 01/16/19 01/16/19 History omeprazole 20 mg PO BID 01/16/19 01/16/19 History sertraline 50 mg PO DAILY 01/16/19 01/16/19 History Patient History Medical History Hip fracture, left (Chronic) s/p repair CAD (coronary artery disease) (Chronic) Traumatic subdural hematoma (Chronic) Anxiety (Chronic) Alzheimer disease (Chronic) PVD (peripheral vascular disease) (Chronic) Pulmonary fibrosis (Chronic) CKD (chronic kidney disease), stage III (Chronic) HTN (hypertension) (Chronic) Dyslipidemia (Chronic) Hypothyroidism (Chronic) DM type 2 (diabetes mellitus, type 2) (Chronic) Surgical History History of left-sided carotid endarterectomy (Chronic) History of cataract surgery (Chronic) H/O oophorectomy (Chronic) Hx of cholecystectomy (Chronic) History of total right knee replacement (Chronic) Family History Other Family history non-contributory Social History Communication Ability: Effective Beliefs That Will Affect Care: None marital status: Single Current Living Situation: Other Current Living Situation Comment: Lives with Padma Aparicio, caregiver current occupational status: retired Other Information That Helps Us Care for You: No Feels Safe at Home: Yes Safety Concerns: Feels Safe At This Time Smoking Status: Never smoker Hx Alcohol Use: No Hx Substance Use: No Review of Systems Constitutional: no fever, no body aches, no weakness and no weight loss Respiratory: no cough, no dyspnea, no pain on inspiration and no wheezing Cardiovascular: no chest pain, no chest pain at rest, no dyspnea on exertion and no palpitations Gastrointestinal: + early satiety and + nausea; no abdominal pain, no belching, no bloating, no heartburn, no vomiting, no coffee ground emesis, no dysphagia, no constipation, no blood in stools and no melena Physical Exam Vital Signs (Past 24 Hours): Last Vital Signs Temp 36.5 C 01/17/19 07:00 Pulse 84 01/17/19 07:00 Resp 18 01/17/19 07:00 BP 150/81 H 01/17/19 07:00 Pulse Ox 94 01/17/19 07:00 Constitutional: cooperative and comfortable; no acute distress Respiratory: normal respiratory effort, lungs clear to auscultation Cardiovascular: RRR, no murmur, no edema Gastrointestinal (Abdomen): Inspection/Auscultation: normal bowel sounds Percussion/Palpation: abdomen soft; abdomen nontender, no guarding, abdomen not rigid, no abdominal mass and no ascites Skin: no rashes, warm and dry Results & Data Laboratory Results 01/17/19 01/17/19 01/17/19 Range/Units 06:32 06:32 06:09 WBC 8.98 (4.8-10.8) K/uL RBC 3.95 L (4.2-5.4) M/uL Hgb 10.9 L D (12.0-16.0) g/dL Hct 34.4 L (37-47) % MCV 87.1 (80-100) fL MCH 27.6 (25-34) pg MCHC 31.7 L (32-36) g/dL RDW Std Deviation 46.8 H (36.4-46.3) fL RDW Coeff of [place] 14.7 H (11.5-14.5) % Plt Count 218 (130-400) K/uL MPV 10.4 (7.4-10.4) fL Immature Gran % (Auto) % Neut % (Auto) % Lymph % (Auto) % [place] % (Auto) % Eos % (Auto) % Baso % (Auto) % Immature Gran # (Auto) (0.00-0.02) K/uL Neut # (Auto) (1.4-6.5) K/uL Lymph # (Auto) (1.2-3.4) K/uL [place] # (Auto) (0.11-0.59) K/uL Eos # (Auto) (0-0.5) K/uL Baso # (Auto) (0-0.2) K/uL Sodium 143 (136-145) mmol/L Potassium 3.4 L D (3.5-5.1) mmol/L Chloride 109 H (98-107) mmol/L Carbon Dioxide 31 (21-32) mmol/L Anion Gap 4.0 (3-11) BUN 22 H (7-18) mg/dl Creatinine 1.01 (0.6-1.2) mg/dl Est Cr Clr Drug Dosing 36.6 ml/min Est GFR ( Amer) 59.6 Est GFR (Non-Af Amer) 51.4 BUN/Creatinine Ratio 21.5 H (10-20) Glucose 89 (70-99) mg/dl POC Glucose 86 (70-99) Calcium 8.6 D (8.5-10.1) mg/dl Magnesium (1.8-2.4) mg/dl Total Bilirubin (0.2-1) mg/dl AST (15-37) U/L ALT (12-78) U/L Alkaline Phosphatase (45-117) U/L Troponin I (0-0.045) ng/ml Total Protein (6.4-8.2) gm/dl Albumin (3.4-5.0) gm/dl Globulin (2.5-4.0) gm/dl Albumin/Globulin Ratio (0.9-2) Lipase (73-393) U/L Urine Color Urine Appearance (Clear) Urine pH (4.5-7.5) Ur Specific [place] (1.000-1.030) Urine Protein (Negative) Urine Glucose (UA) (Negative) Urine Ketones (Negative) Urine Blood (Negative) Urine Nitrite (Negative) Urine Bilirubin (Negative) Urine Urobilinogen (Negative) Ur Leukocyte Esterase (Negative) Urine WBC (Auto) (0-5) /hpf Urine RBC (Auto) (0-4) /hpf U Hyaline Cast (Auto) (0-5) /lpf U Epithel Cells (Auto) (0-5) /lpf Urine Bacteria (Auto) (Negative) Blood Type Antibody Screen 01/16/19 01/16/19 01/16/19 Range/Units 23:20 22:08 15:01 WBC (4.8-10.8) K/uL RBC (4.2-5.4) M/uL Hgb (12.0-16.0) g/dL Hct (37-47) % MCV (80-100) fL MCH (25-34) pg MCHC (32-36) g/dL RDW Std Deviation (36.4-46.3) fL RDW Coeff of [place] (11.5-14.5) % Plt Count (130-400) K/uL MPV (7.4-10.4) fL Immature Gran % (Auto) % Neut % (Auto) % Lymph % (Auto) % [place] % (Auto) % Eos % (Auto) % Baso % (Auto) % Immature Gran # (Auto) (0.00-0.02) K/uL Neut # (Auto) (1.4-6.5) K/uL Lymph # (Auto) (1.2-3.4) K/uL [place] # (Auto) (0.11-0.59) K/uL Eos # (Auto) (0-0.5) K/uL Baso # (Auto) (0-0.2) K/uL Sodium (136-145) mmol/L Potassium (3.5-5.1) mmol/L Chloride (98-107) mmol/L Carbon Dioxide (21-32) mmol/L Anion Gap (3-11) BUN (7-18) mg/dl Creatinine (0.6-1.2) mg/dl Est Cr Clr Drug Dosing ml/min Est GFR ( Amer) Est GFR (Non-Af Amer) BUN/Creatinine Ratio (10-20) Glucose (70-99) mg/dl POC Glucose 141 H (70-99) Calcium (8.5-10.1) mg/dl Magnesium (1.8-2.4) mg/dl Total Bilirubin (0.2-1) mg/dl AST (15-37) U/L ALT (12-78) U/L Alkaline Phosphatase (45-117) U/L Troponin I (0-0.045) ng/ml Total Protein (6.4-8.2) gm/dl Albumin (3.4-5.0) gm/dl Globulin (2.5-4.0) gm/dl Albumin/Globulin Ratio (0.9-2) Lipase (73-393) U/L Urine Color Yellow Urine Appearance Clear (Clear) Urine pH >= 9.0 H (4.5-7.5) Ur Specific [place] > 1.045 H (1.000-1.030) Urine Protein Negative (Negative) Urine Glucose (UA) Negative (Negative) Urine Ketones Trace H (Negative) Urine Blood Negative (Negative) Urine Nitrite Negative (Negative) Urine Bilirubin Negative (Negative) Urine Urobilinogen Negative (Negative) Ur Leukocyte Esterase Negative (Negative) Urine WBC (Auto) >30 H (0-5) /hpf Urine RBC (Auto) 0-4 (0-4) /hpf U Hyaline Cast (Auto) 1-5 (0-5) /lpf U Epithel Cells (Auto) 10-20 H (0-5) /lpf Urine Bacteria (Auto) Negative (Negative) Blood Type A Negative Antibody Screen NEGATIVE 01/16/19 01/16/19 Range/Units 15:01 15:01 WBC 12.99 H (4.8-10.8) K/uL RBC 4.98 (4.2-5.4) M/uL Hgb 14.0 (12.0-16.0) g/dL Hct 43.1 (37-47) % MCV 86.5 (80-100) fL MCH 28.1 (25-34) pg MCHC 32.5 (32-36) g/dL RDW Std Deviation 45.6 (36.4-46.3) fL RDW Coeff of [place] 14.5 (11.5-14.5) % Plt Count 279 (130-400) K/uL MPV 10.5 H (7.4-10.4) fL Immature Gran % (Auto) 0.3 % Neut % (Auto) 89.6 % Lymph % (Auto) 5.9 % [place] % (Auto) 3.9 % Eos % (Auto) 0.1 % Baso % (Auto) 0.2 % Immature Gran # (Auto) 0.04 H (0.00-0.02) K/uL Neut # (Auto) 11.64 H (1.4-6.5) K/uL Lymph # (Auto) 0.77 L (1.2-3.4) K/uL [place] # (Auto) 0.51 (0.11-0.59) K/uL Eos # (Auto) 0.01 (0-0.5) K/uL Baso # (Auto) 0.02 (0-0.2) K/uL Sodium 139 (136-145) mmol/L Potassium 4.4 (3.5-5.1) mmol/L Chloride 101 (98-107) mmol/L Carbon Dioxide 31 (21-32) mmol/L Anion Gap 7.0 (3-11) BUN 24 H (7-18) mg/dl Creatinine 1.41 H (0.6-1.2) mg/dl Est Cr Clr Drug Dosing 26.6 ml/min Est GFR ( Amer) 39.8 Est GFR (Non-Af Amer) 34.4 BUN/Creatinine Ratio 17.2 (10-20) Glucose 215 H (70-99) mg/dl POC Glucose (70-99) Calcium 10.6 H (8.5-10.1) mg/dl Magnesium 2.2 (1.8-2.4) mg/dl Total Bilirubin 0.5 (0.2-1) mg/dl AST 15 (15-37) U/L ALT 11 L (12-78) U/L Alkaline Phosphatase 92 (45-117) U/L Troponin I 0.027 (0-0.045) ng/ml Total Protein 7.3 (6.4-8.2) gm/dl Albumin 3.3 L (3.4-5.0) gm/dl Globulin 4.0 (2.5-4.0) gm/dl Albumin/Globulin Ratio 0.8 L (0.9-2) Lipase 94 (73-393) U/L Urine Color Urine Appearance (Clear) Urine pH (4.5-7.5) Ur Specific [place] (1.000-1.030) Urine Protein (Negative) Urine Glucose (UA) (Negative) Urine Ketones (Negative) Urine Blood (Negative) Urine Nitrite (Negative) Urine Bilirubin (Negative) Urine Urobilinogen (Negative) Ur Leukocyte Esterase (Negative) Urine WBC (Auto) (0-5) /hpf Urine RBC (Auto) (0-4) /hpf U Hyaline Cast (Auto) (0-5) /lpf U Epithel Cells (Auto) (0-5) /lpf Urine Bacteria (Auto) (Negative) Blood Type Antibody Screen
[2019-01-17] MEDS: DONEPEZIL HCL 5 MG TAB PO SCH (16:18)
[2019-01-17] MEDS ORDERED: SUCRALFATE 1 GM/10 ML UDC PO SCH (17:00)
--- NOTE | 2019-01-17 17:14 | Hospitalist Progress Note ---
Date of Service January 17, 2019 Assessment & Plan (1) Vomiting: -symptoms has improved diet advanced to clears -Patient presenting from home with poor appetite for the past few weeks and persistent vomiting that began last evening -Patient recently admitted to [facility] for very similar symptoms. Patient underwent EGD that admission that demonstrated esophagitis and a large duodenal diverticulum causing possible gastric outlet obstruction. Patient underwent an upper GI series that did not demonstrate any current obstruction. Patient was started on PPI twice daily and Reglan. -CT ABD/pelvis in the ED demonstrates distal esophageal wall thickening -will start IV PPI twice daily and p.o. Carafate suspension, continue Reglan -Gi consult appreciated no plan for repeat EGD this admission cont to monitor clinically (2) Urinary symptom or sign: -Patient started on Macrobid on 01/14 as an outpatient for possible UTI however no urine sample was obtained -follow urine culture (3) HTN (hypertension): -Continue lisinopril and metoprolol (4) DM type 2 (diabetes mellitus, type 2): -Hgb A1c 7.0 07/2018 -Hold oral agents and utilize NovoLog per protocol while hospitalized (5) CKD (chronic kidney disease), stage III: - baseline creat runs in the low ones - creat noted to be 1.4 today - continue to monitor, avoid nephrotoxic agents when able (6) Dyslipidemia: -Continue statin (7) Hypothyroidism: -Continue levothyroxine (8) Anxiety: -Continue sertraline (9) Alzheimer disease: -Continue donepezil (10) DVT prophylaxis: -SCDs due to reported coffee-ground emesis Subjective no complain of adominal pain no nausea /vomiting diet advanced to clears , tolerating well Physical Exam Vital Signs (Past 24 Hours): Last Vital Signs Temp 36.2 C L 01/17/19 15:23 Pulse 68 01/17/19 15:23 Resp 16 01/17/19 15:23 BP 128/69 01/17/19 15:23 Pulse Ox 94 01/17/19 15:23 Physical Exam: GENERAL: No sign of distress, HEENT: Sclera nonicteric, pink-purple bilateral equal reactive to light extraocular muscle intact Normal oral mucosa, neck: No JVD, no thyromegaly, trachea midline Lungs: Clear to auscultate, no wheeze or rales Cardiovascular: Regular S1 and S2, no murmur or gallop, no JVD, no lower extremity edema Abdomen: Soft, nontender, bowel sounds active, no hepatosplenomegaly Extremities: No rash or deformity, normal joint, Neuro: No focal neurological deficit, no dysarthria, no facial droop Psych: Alert awake oriented x3: Euthymic Skin: No rash LYMPH NODES: No cervical lymphadenopathy
[2019-01-17] MEDS: POTASSIUM CHLORIDE 20 MEQ in LACTATED RINGER'S 1,000 ML IV SCH (18:00)
[2019-01-17] MEDS: MIRTAZAPINE TAB 15 MG TAB PO SCH (21:10)
[2019-01-18] MEDS ORDERED: cloNIDine HCl 0.1 MG TAB PO ONE (00:10)
[2019-01-18 06:14] LABS: Hematocrit (blood only) 30.4 % (37-47); Hemoglobin 9.5 g/dL (12.0-16.0); Mean Corpuscular Hgb Conc 31.3 g/dL (32-36); Mean Corpuscular Volume 88.1 fL (80-100); Mean Platelet Volume 10.3 fL (7.4-10.4); Platelet Count 180 K/uL (130-400); RDW Coefficient of Variation 14.9 % (11.5-14.5); Red Blood Count 3.45 M/uL (4.2-5.4); White Blood Count 7.12 K/uL (4.8-10.8)
[2019-01-18] MEDS: POTASSIUM CHLORIDE 20 MEQ in LACTATED RINGER'S 1,000 ML IV SCH ×2 (06:20→18:46)
[2019-01-18] MEDS: LEVOTHYROXINE SODIUM 50 MCG TABLET PO SCH (06:29)
[2019-01-18 06:57] LABS: BUN Creatinine Ratio 19.9 (10-20); Calcium 7.8 mg/dl (8.5-10.1); Creatinine Clr Calc Pharmacy 36.9 ml/min; Est GFR (African American) 60.3; Est GFR (Non-African American) 52.1
[2019-01-18] MEDS: SUCRALFATE 1 GM/10 ML UDC PO SCH ×4 (07:59→21:22)
[2019-01-18] MEDS: SERTRALINE HCL 50 MG TABLET PO SCH (08:00)
[2019-01-18] MEDS: FERROUS SULFATE 325 MG TAB PO SCH (08:00)
[2019-01-18] MEDS: METOCLOPRAMIDE HCL 5 MG TABLET PO SCH ×4 (08:00→21:21)
[2019-01-18] MEDS: LISINOPRIL 20 MG TAB PO SCH (08:00)
[2019-01-18] MEDS: METOPROLOL SUCC 25MG EXT REL TAB PO SCH (08:00)
[2019-01-18] MEDS: PANTOprazole 40 MG in SYRINGE 0 ML IV SCH ×2 (08:47→21:22)
[2019-01-18] MEDS: INSULIN ASPART 100 UNITS/ML 3 ML PEN SC SCH ×4 (08:48→22:49)
--- NOTE | 2019-01-18 09:03 | Gastroenterology Progress Note ---
Date of Service January 18, 2019 Assessment & Plan (1) Esophagitis: 83 year old female with known grade D reflux esophagitis, small HH and large duodenal diverticulum w/ compression of the second portion of the duodenum w/ previous concern for intermittent GOO secondary to duodenal compression. She is currently asymptomatic denying abd pain, nausea or vomiting w/o CT evidence of acute changes. This AM she is awake, alert and oriented to person, place and time. I re- educated her about prior EGD and he ongoing symptoms. She tells me she no longer wishes to undergo invasive procedures. She notes she does not wish to have any surgical revision even if they were to alleviate her symptoms. - PPI BID indefinitely - QID carafate - Can consider repeat UGI series if symptoms return - Consider gastric emptying scan if symptoms return - Gastroparesis diet - Low residue diet - Smaller, more frequent meals - No plan for endoscopic evaluation given her preference Will sign off. No GI contraindication to diet or discharge.Thank you for allowing us to participate in the care of this patient. Please call with any acute changes, questions or concerns. Please see addendum below with additional recommendation from my supervising physician. Supervising Physician Co-Signing Physician Notes Attending attestation I have seen, examined this patient, and agree with the findings and above by our mid-level provider ADELINA Sahu. -Patient asymptomatic, tolerating liquids, advance diet as tolerated,. -Systemic causes of nausea vomiting likely due to Pseudomonas and not of a primary GI etiology. Continue treatment with twice daily PPI -GI will signed off Subjective Pt was seen and evaluated, chart reviewed. She is sitting upright in bed, getting ready to eat breakfast. She is awake, alert and oriented this AM. Answers all questions appropriately. Notes she is hungry, wants to go home. No abd pain. No nausea, vomiting. No fever, chills. Denies black or bloody stools. HGB at time of discharge from [facility] was 10. CT ABD/Pelvis 2019: Chronic sigmoid diverticulosis with potential trace amount of superimposed acute diverticular change. No evidence for abscess collection or obstruction.Small bilateral renal cysts.Diffuse bibasilar bronchiectatic and fibrotic change. Moderate distal esophageal wall thickening associated with a small hiatal hernia UGI series 2019: Severe reflux esophagitis. There is delayed gastric emptying, but the underlying cause appears to be physiologic rather than mechanical. Diminished gastric peristalsis. No evidence of mechanical gastric outlet obstruction at this time. EGD 2019: LA Grade D reflux esophagitis. Small hiatal hernia. Large duodenal diverticulum, with compression of the second portion of the duodenum. It may be possible that pt has gastric outlet obstruction due to duodenal compression from duodenaldiverticulcum. ERCP 2017: One visibly patent stent from the biliary tree was seen in the major papilla. Prior biliary endoscopic sphincterotomy appeared open. The patient has had a cholecystectomy. One stent was removed from the biliary tree.The biliary tree was swept and sludge was found. Indomethacin given to decrease risk of post-ERCPpancreatitis. ERCP 2017: The major papilla appeared to be small. Biliary papillary stenosis, benign. The entire main bile duct was moderately dilated.Choledocholithiasis was found. Complete removal was accomplished by biliary sphincterotomy and balloon extraction. A biliary sphincterotomy was performed. the lower third of the main bile duct was successfully dilated. The biliary tree was swept. One biliary stent was placed into the common bile duct. Indomethacin given to decrease risk of post-ERCPpancreatitis. EGD 2016: this was arranged for dysphagia but cancelled for HTN, pt did not reschedule Colonoscopy 2006: this was cancelled, pt did not rescheudle Constitutional: no fever, no body aches, no weakness and no insomnia Respiratory: no cough, no dyspnea, no pain on inspiration and no wheezing Cardiovascular: no chest pain, no radiating jaw, neck or arm pain, no dyspnea on exertion and no palpitations Gastrointestinal: no abdominal pain, no belching, no bloating, no early satiety, no heartburn, no nausea, no vomiting, no coffee ground emesis, no dysphagia, no constipation, no blood in stools and no melena Physical Exam Vital Signs (Past 24 Hours): Last Vital Signs Temp 36.3 C L 01/18/19 08:16 Pulse 62 01/18/19 08:16 Resp 18 01/18/19 08:16 BP 130/68 01/18/19 08:16 Pulse Ox 94 01/18/19 08:16 Constitutional: cooperative and comfortable; no acute distress Respiratory: normal respiratory effort, lungs clear to auscultation Cardiovascular: RRR, no murmur, no edema Gastrointestinal (Abdomen): Inspection/Auscultation: normal bowel sounds Percussion/Palpation: abdomen soft; abdomen nontender, no guarding, abdomen not rigid, no abdominal mass and no ascites Skin: no rashes, warm and dry Results & Data Laboratory Results 01/18/19 01/18/19 01/18/19 Range/Units 08:08 05:55 05:55 WBC 7.12 (4.8-10.8) K/uL RBC 3.45 L (4.2-5.4) M/uL Hgb 9.5 L (12.0-16.0) g/dL Hct 30.4 L (37-47) % MCV 88.1 (80-100) fL MCH 27.5 (25-34) pg MCHC 31.3 L (32-36) g/dL RDW Std Deviation 48.0 H (36.4-46.3) fL RDW Coeff of [place] 14.9 H (11.5-14.5) % Plt Count 180 (130-400) K/uL MPV 10.3 (7.4-10.4) fL Sodium 145 (136-145) mmol/L Potassium 4.0 D (3.5-5.1) mmol/L Chloride 112 H (98-107) mmol/L Carbon Dioxide 28 (21-32) mmol/L Anion Gap 5.0 (3-11) BUN 20 H (7-18) mg/dl Creatinine 1.00 (0.6-1.2) mg/dl Est Cr Clr Drug Dosing 36.9 ml/min Est GFR ( Amer) 60.3 Est GFR (Non-Af Amer) 52.1 BUN/Creatinine Ratio 19.9 (10-20) Glucose 77 (70-99) mg/dl POC Glucose 90 (70-99) Calcium 7.8 L (8.5-10.1) mg/dl Specimen Hemolysis 01/17/19 01/17/19 01/17/19 Range/Units 20:54 16:55 11:59 WBC (4.8-10.8) K/uL RBC (4.2-5.4) M/uL Hgb (12.0-16.0) g/dL Hct (37-47) % MCV (80-100) fL MCH (25-34) pg MCHC (32-36) g/dL RDW Std Deviation (36.4-46.3) fL RDW Coeff of [place] (11.5-14.5) % Plt Count (130-400) K/uL MPV (7.4-10.4) fL Sodium (136-145) mmol/L Potassium (3.5-5.1) mmol/L Chloride (98-107) mmol/L Carbon Dioxide (21-32) mmol/L Anion Gap (3-11) BUN (7-18) mg/dl Creatinine (0.6-1.2) mg/dl Est Cr Clr Drug Dosing ml/min Est GFR ( Amer) Est GFR (Non-Af Amer) BUN/Creatinine Ratio (10-20) Glucose (70-99) mg/dl POC Glucose 141 H 102 H 121 H (70-99) Calcium (8.5-10.1) mg/dl Specimen Hemolysis
[2019-01-18] MEDS: CEFEPIME 2,000 MG in SYRINGE 0 ML IV SCH (11:56)
[2019-01-18] MEDS: DONEPEZIL HCL 5 MG TAB PO SCH (16:18)
--- NOTE | 2019-01-18 18:16 | Hospitalist Progress Note ---
Date of Service January 18, 2019 Assessment & Plan (1) Vomiting: -symptoms has resolved no evidence of GI bleed , no further episode of coffee gound emesis no dark stool diet advanced -Patient presented from home with poor appetite for the past few weeks and persistent vomiting appreciate input from GI possible esophagitis recommends PPI carafate -recent EGD that admission that demonstrated esophagitis and a large duodenal diverticulum causing possible gastric outlet obstruction. Patient underwent an upper GI series that did not demonstrate any current obstruction. Patient was started on PPI twice daily and Reglan. -CT ABD/pelvis in the ED demonstrates distal esophageal wall thickening no plan for repeat EGD this admission as no evidence of active GI bleed noted (2) HTN (hypertension): -Continue lisinopril and metoprolol (3) DM type 2 (diabetes mellitus, type 2): -Hgb A1c 7.0 07/2018 -Hold oral agents and utilize NovoLog per protocol while hospitalized (4) CKD (chronic kidney disease), stage III: -acute renal failure -due to dehydration , nausea /vomiting /poor PO intake cr improved with IV fluid - continue to monitor, avoid nephrotoxic agents when able (5) Dyslipidemia: -Continue statin (6) Hypothyroidism: -Continue levothyroxine (7) Anxiety: -Continue sertraline (8) Alzheimer disease: -Continue donepezil (9) DVT prophylaxis: -SCDs due to reported coffee-ground emesis (10) UTI (urinary tract infection): urine culture + psedomonas pt is allergic to cipro ordered for Cefepime follow sensitivity CODE STATUS : DNR/DNI DISPOSITION : PT /OT eval appreciated can return home with 24hr care spoke with Pt's Supervisor Assembly Stock Suzy will benefit with home health /Home PT possible discharged home tomorrow Subjective offers no complain no nausea vomiting toleraing diet well diet advanced no evicence of cofffee gound emesis stable to be discharged per GI Physical Exam Vital Signs (Past 24 Hours): Last Vital Signs Temp 36.9 C 01/18/19 15:07 Pulse 64 01/18/19 15:07 Resp 18 01/18/19 15:07 BP 125/69 01/18/19 15:07 Pulse Ox 94 01/18/19 15:07 Constitutional: WD/WN, vitals as above cooperative and comfortable; no acute distress Eyes: PERRL, conjunctivae normal, anicteric sclerae ENMT: external ear and nose normal, oropharynx normal Respiratory: normal respiratory effort, lungs clear to auscultation Cardiovascular: RRR, no murmur, no edema Rate/Rhythm: regular rate and regular rhythm Vessels: normal peripheral pulses Extremities: no edema Gastrointestinal (Abdomen): normal bowel sounds, soft, nontender, no hep atosplenomegaly Inspection/Auscultation: normal bowel sounds Percussion/Palpation: abdomen soft; abdomen nontender, no guarding, abdomen not rigid, no abdominal mass and no ascites Musculoskeletal: no cyanosis or clubbing, extremities motor strength 5/5 Skin: no rashes, warm and dry Neurologic: PERRL, EOMI, accommodation nl, no face palsy, no dysarthria Psychiatric: A+Ox3, euthymic affect (Forgetful) Insight: + limited insight
[2019-01-18] MEDS: MIRTAZAPINE TAB 15 MG TAB PO SCH (21:21)
[2019-01-19] MEDS: POTASSIUM CHLORIDE 20 MEQ in LACTATED RINGER'S 1,000 ML IV SCH (05:56)
[2019-01-19] MEDS: LEVOTHYROXINE SODIUM 50 MCG TABLET PO SCH (05:56)
[2019-01-19] MEDS: METOPROLOL SUCC 25MG EXT REL TAB PO SCH (09:10)
[2019-01-19] MEDS: PANTOprazole 40 MG in SYRINGE 0 ML IV SCH (09:10)
[2019-01-19] MEDS: METOCLOPRAMIDE HCL 5 MG TABLET PO SCH ×4 (09:11→20:45)
[2019-01-19] MEDS: FERROUS SULFATE 325 MG TAB PO SCH (09:11)
[2019-01-19] MEDS: SUCRALFATE 1 GM/10 ML UDC PO SCH ×4 (09:11→20:45)
[2019-01-19] MEDS: SERTRALINE HCL 50 MG TABLET PO SCH (09:11)
[2019-01-19] MEDS: LISINOPRIL 20 MG TAB PO SCH (09:11)
[2019-01-19] MEDS: INSULIN ASPART 100 UNITS/ML 3 ML PEN SC SCH ×4 (09:12→21:22)
[2019-01-19] MEDS: CEFEPIME 2,000 MG in SYRINGE 0 ML IV SCH ×2 (13:15→13:59)
[2019-01-19] MEDS: DONEPEZIL HCL 5 MG TAB PO SCH (17:25)
--- NOTE | 2019-01-19 17:26 | Magnetic Resonance Report ---
MRI OF THE LEFT HIP WITHOUT CONTRAST CLINICAL HISTORY: Left hip pain. Recent fall. COMPARISON STUDY: CT of the abdomen and pelvis January 16, 2019. TECHNIQUE: Utilizing a 1.5 Meenakshi magnet, multiplanar, multi echo imaging of the left hip was performe d without intravenous or intra-articular contrast. FINDINGS: A 4.2 cm T1 and T2 hypointense uterine lesion is suggestive of a fibroid. There is sigmoid reticulosis. A small amount of fluid within the pelvis is noted. There is no marrow edema within the pelvis or hips to suggest acute fracture. Evaluation of the left hip is compromised by susceptibility artifact from internal fixation hardware. There is a healed left femoral neck fracture. A 2.6 x 1.3 cm pocket of fluid is noted posterior to the left hip joint. Susceptibility artifact within the right femoral shaft is partially imaged. There is increased T2 signal within the left iliacus muscle and l eft gluteal musculature. Sacroiliac joints are intact. The sacral fracture. There is no suspicious ma rrow replacement. IMPRESSION: 1. No evidence for acute fracture within the pelvis or hips by MRI. Evaluation of the left femur comp romised by susceptibility artifact from surgical hardware but no marrow edema to suggest fracture. He aled left femoral neck fracture. 2. Increased T2 signal within the left iliacus and gluteal muscles which is nonspecific but may refle ct mild muscular injury. 3. Small pocket of fluid posterior to the left hip joint. This is probably chronic. Electronically signed by: Mateus Locke M.D. 01/19/2019 5:25 PM
--- NOTE | 2019-01-19 18:04 | Hospitalist Progress Note ---
Date of Service January 19, 2019 Assessment & Plan (1) UTI (urinary tract infection): urine culture + psedomonas pt is allergic to cipro ordered for Cefepime sensitive to Cipro /Levaquin D/w Pt;s care givers -pt get significant confusion /delirium while on cipo /Levaquin Per Pharmacy : know side effect for quinolones will cont on IV cefepime today 5 days pt is on 2/5 days of tx (2) Vomiting: -symptoms has resolved no evidence of GI bleed , no further episode of coffee gound emesis no dark stool diet advanced -tolerating well -Patient presented from home with poor appetite for the past few weeks and persistent vomiting appreciate input from GI possible esophagitis recommends PPI carafate -recent EGD that admission that demonstrated esophagitis and a large duodenal diverticulum causing possible gastric outlet obstruction. Patient underwent an upper GI series that did not demonstrate any current obstruction. Patient was started on PPI twice daily and Reglan. -CT ABD/pelvis in the ED demonstrates distal esophageal wall thickening no plan for repeat EGD this admission as no evidence of active GI bleed noted (3) HTN (hypertension): -Continue lisinopril and metoprolol (4) DM type 2 (diabetes mellitus, type 2): -Hgb A1c 7.0 07/2018 -Hold oral agents and utilize NovoLog per protocol while hospitalized (5) CKD (chronic kidney disease), stage III: -acute renal failure -due to dehydration , nausea /vomiting /poor PO intake cr improved with IV fluid - continue to monitor, avoid nephrotoxic agents when able (6) Dyslipidemia: -Continue statin (7) Hypothyroidism: -Continue levothyroxine (8) Anxiety: -Continue sertraline (9) Alzheimer disease: -Continue donepezil (10) DVT prophylaxis: aub q heparin CODE STATUS : DNR/DNI DISPOSITION : PT /OT jhonatan appreciated can return home with 24hr care spoke with Pt's Pad Machine Feeder Suzy will benefit with home health /Home PT d/w watch band assembler Suzy referral made to home health visiting nurse plan to discharge home early on monday 01/22 after completing 5 days of Abx tx (11) Left hip pain: hx of chronic left hip pain had ORIF of left hip sustained a fall on left hip approx 2 months back caregiver noted , pt would complain of left hip pain and lose balance the symptom apprears episodically as per PT eval at [facility] pt did not had any pain symptom watch band assembler trying to schedule with Orthopedics at [facility] requests for MRI of left hip as that was requested by pt's PCP for her ongoing symptom MRI of left hip ordered will consider Ortho eval if significant pathology noted on MRI of hip Subjective sitting up on chair offers no complain no nausea /vomiting no dark stool tolerating diet well Physical Exam Vital Signs (Past 24 Hours): Last Vital Signs Temp 37.2 C 01/19/19 07:17 Pulse 65 01/19/19 07:17 Resp 20 01/19/19 07:17 BP 144/74 H 01/19/19 07:17 Pulse Ox 93 01/19/19 07:17 Constitutional: WD/WN, vitals as above cooperative and comfortable; no acute distress Eyes: PERRL, conjunctivae normal, anicteric sclerae ENMT: external ear and nose normal, oropharynx normal Respiratory: normal respiratory effort, lungs clear to auscultation Cardiovascular: RRR, no murmur, no edema Rate/Rhythm: regular rate and regular rhythm Vessels: normal peripheral pulses Extremities: no edema Gastrointestinal (Abdomen): normal bowel sounds, soft, nontender, no hepatosplenomegaly Inspection/Auscultation: normal bowel sounds Percussion/Palpation: abdomen soft; abdomen nontender, no guarding, abdomen not rigid, no abdominal mass and no ascites Musculoskeletal: no cyanosis or clubbing, extremities motor strength 5/5 Skin: no rashes, warm and dry Neurologic: PERRL, EOMI, accommodation nl, no face palsy, no dysarthria Psychiatric: A+Ox3, euthymic affect (Forgetful) Insight: + limited insight (1) UTI (urinary tract infection) Urinary tract infection type: site unspecified Hematuria presence: without hematuria Qualified Code(s): N39.0 - Urinary tract infection, site not specified (2) DM type 2 (diabetes mellitus, type 2) Diabetes mellitus fpc insulin use: without termite treater use Diabetes mellitus complication status: with unspecified complications Qualified Code(s): E11.8 - Type 2 diabetes mellitus with unspecified complications (3) Alzheimer disease Alzheimer's disease onset: unspecified onset Dementia behavioral disturbance: without behavioral disturbance Qualified Code(s): G30.9 - Alzheimer's disease, unspecified; F02.80 - Dementia in other diseases classified elsewhere without behavioral disturbance (4) Hypothyroidism Hypothyroidism type: unspecified Qualified Code(s): E03.9 - Hypothyroidism, unspecified (5) HTN (hypertension) Hypertension type: unspecified Qualified Code(s): I10 - Essential (primary) hypertension (6) Vomiting Vomiting type: unspecified Vomiting Intractability: unspecified Nausea presence: unspecified Qualified Code(s): R11.10 - Vomiting, unspecified
[2019-01-19] MEDS ORDERED: ONDANSETRON INJ 2 MG/ML 2 ML VIAL IV PRN (18:17)
[2019-01-19] MEDS: MIRTAZAPINE TAB 15 MG TAB PO SCH (20:45)
[2019-01-20] MEDS: ACETAMINOPHEN 325 MG TAB PO PRN ×2 (03:06→07:42)
[2019-01-20] MEDS: LEVOTHYROXINE SODIUM 50 MCG TABLET PO SCH (06:21)
[2019-01-20] MEDS: METOCLOPRAMIDE HCL 5 MG TABLET PO SCH ×4 (07:41→20:49)
[2019-01-20] MEDS: SUCRALFATE 1 GM/10 ML UDC PO SCH ×4 (07:41→20:49)
[2019-01-20] MEDS: SERTRALINE HCL 50 MG TABLET PO SCH (07:42)
[2019-01-20] MEDS: LISINOPRIL 20 MG TAB PO SCH (07:42)
[2019-01-20] MEDS: FERROUS SULFATE 325 MG TAB PO SCH (07:42)
[2019-01-20] MEDS: METOPROLOL SUCC 25MG EXT REL TAB PO SCH (07:42)
[2019-01-20] MEDS: CEFEPIME 2,000 MG in SYRINGE 0 ML IV SCH (08:56)
[2019-01-20] MEDS: INSULIN ASPART 100 UNITS/ML 3 ML PEN SC SCH ×4 (09:51→20:52)
[2019-01-20] MEDS: DONEPEZIL HCL 5 MG TAB PO SCH (16:08)
--- NOTE | 2019-01-20 16:54 | Hospitalist Progress Note ---
Date of Service January 20, 2019 Assessment & Plan (1) Left hip pain: hx of chronic left hip pain had ORIF of left hip sustained a fall on left hip approx 2 months back caregiver noted , pt would complain of left hip pain and lose balance the symptom apprears episodically as per PT eval at [facility] pt did not had any pain symptom child caregiver trying to schedule with Orthopedics at [facility] requests for MRI of left hip as that was requested by pt's PCP for her ongoing symptom MRI of left hip : shows : IMPRESSION: 1. No evidence for acute fracture within the pelvis or hips by MRI. Evaluation of the left femur compromised by susceptibility artifact from surgical hardware but no marrow edema to suggest fracture. Healed left femoral neck fracture. 2. Increased T2 signal within the left iliacus and gluteal muscles which is nonspecific but may reflect mild muscular injury. 3. Small pocket of fluid posterior to the left hip joint. This is probably chronic. report updated to Suzy no further Ortho eval needed cont PT/OT (2) UTI (urinary tract infection): urine culture + psedomonas pt is allergic to cipro ordered for Cefepime sensitive to Cipro /Levaquin D/w Pt;s care givers -pt get significant confusion /delirium while on cipo /Levaquin Per Pharmacy : know side effect for quinolones will cont on IV cefepime today 5 days pt is on 3/ days of tx last day of tx is Monday01/22/19 will be scheduled to give in AM can be discharged home later that day with Home health /Home PT (3) Vomiting: -symptoms has resolved /tolerating diet no further issue no evidence of GI bleed , no further episode of coffee gound emesis no dark stool diet advanced -tolerating well -Patient presented from home with poor appetite for the past few weeks and persistent vomiting appreciate input from GI possible esophagitis recommends PPI carafate -recent EGD that admission that demonstrated esophagitis and a large duodenal diverticulum causing possible gastric outlet obstruction. Patient underwent an upper GI series that did not demonstrate any current obstruction. Patient was started on PPI twice daily and Reglan. -CT ABD/pelvis in the ED demonstrates distal esophageal wall thickening no plan for repeat EGD this admission as no evidence of active GI bleed noted (4) HTN (hypertension): -Continue lisinopril and metoprolol (5) DM type 2 (diabetes mellitus, type 2): -Hgb A1c 7.0 07/2018 -Hold oral agents and utilize NovoLog per protocol while hospitalized (6) CKD (chronic kidney disease), stage III: -acute renal failure -due to dehydration , nausea /vomiting /poor PO intake cr improved with IV fluid tolerating diet /IVF D/nhan - continue to monitor, avoid nephrotoxic agents when able (7) Dyslipidemia: -Continue statin (8) Hypothyroidism: -Continue levothyroxine (9) Anxiety: -Continue sertraline (10) Alzheimer disease: -Continue donepezil (11) DVT prophylaxis: aub q heparin CODE STATUS : DNR/DNI DISPOSITION : PT /OT gudeliaal appreciated can return home with 24hr care spoke with Pt's Physician Assistant Surgery Suzy will benefit with home health /Home PT d/w child caregiver Suzy referral made to home health visiting nurse plan to discharge home early on monday 01/22 after completing 5 days of Abx tx Subjective offers no complain very pleasant no fever or chills no nausea no complain of hip pain MRI of left hip shows no active pathology stable to return home with home PT pt uses walker at baseline Physical Exam Vital Signs (Past 24 Hours): Last Vital Signs Temp 36.9 C 01/20/19 15:34 Pulse 71 01/20/19 15:34 Resp 18 01/20/19 15:34 BP 177/71 H 01/20/19 15:34 Pulse Ox 93 01/20/19 15:34 Constitutional: WD/WN, vitals as above cooperative and comfortable; no acute distress Eyes: PERRL, conjunctivae normal, anicteric sclerae ENMT: external ear and nose normal, oropharynx normal Respiratory: normal respiratory effort, lungs clear to auscultation Cardiovascular: RRR, no murmur, no edema Rate/Rhythm: regular rate and regular rhythm Vessels: normal peripheral pulses Extremities: no edema Gastrointestinal (Abdomen): normal bowel sounds, soft, nontender, no hepatosplenomegaly Inspection/Auscultation: normal bowel sounds Percussion/Palpation: abdomen soft; abdomen nontender, no guarding, abdomen not rigid, no abdominal mass and no ascites Musculoskeletal: no cyanosis or clubbing, extremities motor strength 5/5 Skin: no rashes, warm and dry Neurologic: PERRL, EOMI, accommodation nl, no face palsy, no dysarthria Psychiatric: A+Ox3, euthymic affect (Forgetful) Insight: + limited insight (1) UTI (urinary tract infection) Hematuria presence: without hematuria Urinary tract infection type: site unspecified Qualified Code(s): N39.0 - Urinary tract infection, site not specified (2) DM type 2 (diabetes mellitus, type 2) Diabetes mellitus complication status: with unspecified complications Diabetes mellitus terminal carman insulin use: without care home use Qualified Code(s): E11.8 - Type 2 diabetes mellitus with unspecified complications (3) Alzheimer disease Alzheimer's disease onset: unspecified onset Dementia behavioral disturbance: without behavioral disturbance Qualified Code(s): G30.9 - Alzheimer's disease, unspecified; F02.80 - Dementia in other diseases classified elsewhere without behavioral disturbance (4) Hypothyroidism Hypothyroidism type: unspecified Qualified Code(s): E03.9 - Hypothyroidism, unspecified (5) HTN (hypertension) Hypertension type: unspecified Qualified Code(s): I10 - Essential (primary) hypertension (6) Vomiting Nausea presence: unspecified Vomiting Intractability: unspecified Vomiting type: unspecified Qualified Code(s): R11.10 - Vomiting, unspecified
[2019-01-20] MEDS: MIRTAZAPINE TAB 15 MG TAB PO SCH (20:49)
[2019-01-21] MEDS ORDERED: ZOLPIDEM TARTRATE 5 MG TAB PO STA (00:27)
[2019-01-21] MEDS: ACETAMINOPHEN 325 MG TAB PO PRN ×2 (00:41→05:29)
[2019-01-21] MEDS: LEVOTHYROXINE SODIUM 50 MCG TABLET PO SCH (05:25)
[2019-01-21] MEDS: METOCLOPRAMIDE HCL 5 MG TABLET PO SCH ×4 (07:44→21:16)
[2019-01-21] MEDS: SUCRALFATE 1 GM/10 ML UDC PO SCH ×4 (07:44→21:15)
[2019-01-21] MEDS: CEFEPIME 2,000 MG in SYRINGE 0 ML IV SCH (07:44)
[2019-01-21] MEDS: METOPROLOL SUCC 25MG EXT REL TAB PO SCH (09:16)
[2019-01-21] MEDS: SERTRALINE HCL 50 MG TABLET PO SCH (09:16)
[2019-01-21] MEDS: FERROUS SULFATE 325 MG TAB PO SCH (09:16)
[2019-01-21] MEDS: LISINOPRIL 20 MG TAB PO SCH (09:16)
[2019-01-21] MEDS: INSULIN ASPART 100 UNITS/ML 3 ML PEN SC SCH ×4 (09:20→21:17)
--- NOTE | 2019-01-21 16:10 | Hospitalist Progress Note ---
Date of Service January 21, 2019 Assessment & Plan (1) Left hip pain: Denies of any pain or discomfort in left hip, ambulating in hallway with walker and contact-guard hx of chronic left hip pain had ORIF of left hip sustained a fall on left hip approx 2 months back caregiver noted , pt would complain of left hip pain and lose balance the symptom apprears episodically as per PT eval at [facility] pt did not had any pain symptom compliance and control analyst trying to schedule with Orthopedics at [facility] requests for MRI of left hip as that was requested by pt's PCP for her ongoing symptom MRI of left hip : shows : IMPRESSION: 1. No evidence for acute fracture within the pelvis or hips by MRI. Evaluation of the left femur compromised by susceptibility artifact from surgical hardware but no marrow edema to suggest fracture. Healed left femoral neck fracture. 2. Increased T2 signal within the left iliacus and gluteal muscles which is nonspecific but may reflect mild muscular injury. 3. Small pocket of fluid posterior to the left hip joint. This is probably chronic. report updated to Suzy no further Ortho eval needed cont PT/OT Patient is stable to return home with home health home PT (2) UTI (urinary tract infection): urine culture + psedomonas pt is allergic to cipro ordered for Cefepime sensitive to Cipro /Levaquin D/w Pt;s care givers -pt get significant confusion /delirium while on cipo /Levaquin Per Pharmacy : know side effect for quinolones will cont on IV cefepime today 5 days pt is on 4/5 days of tx last day of tx is Monday01/22/19 will be scheduled to give in AM can be discharged home later that day with Home health /Home PT (3) Vomiting: -symptoms has resolved /tolerating diet no further issue no evidence of GI bleed , no further episode of coffee gound emesis no dark stool diet advanced -tolerating well -Patient presented from home with poor appetite for the past few weeks and persistent vomiting appreciate input from GI possible esophagitis recommends PPI carafate -recent EGD that admission that demonstrated esophagitis and a large duodenal diverticulum causing possible gastric outlet obstruction. Patient underwent an upper GI series that did not demonstrate any current obstruction. Patient was started on PPI twice daily and Reglan. -CT ABD/pelvis in the ED demonstrates distal esophageal wall thickening no plan for repeat EGD this admission as no evidence of active GI bleed noted Stable to be discharged home tomorrow after a.m. dose of IV antibiotics (4) HTN (hypertension): -Continue lisinopril and metoprolol (5) DM type 2 (diabetes mellitus, type 2): -Hgb A1c 7.0 07/2018 -Hold oral agents and utilize NovoLog per protocol while hospitalized (6) CKD (chronic kidney disease), stage III: -acute renal failure -due to dehydration , nausea /vomiting /poor PO intake cr improved with IV fluid tolerating diet /IVF D/nhan - continue to monitor, avoid nephrotoxic agents when able (7) Dyslipidemia: -Continue statin (8) Hypothyroidism: -Continue levothyroxine (9) Anxiety: -Continue sertraline (10) Alzheimer disease: -Continue donepezil (11) DVT prophylaxis: aub q heparin CODE STATUS : DNR/DNI DISPOSITION : PT /OT eval appreciated can return home with 24hr care spoke with Pt's Oil Changer Suzy will benefit with home health /Home PT d/w compliance and control analyst Suzy referral made to home health visiting nurse plan to discharge home on monday 01/22 after completing 5 days of Abx tx Subjective Offers no new complaint, feels fine, no fever or chills, tolerating diet no nausea vomiting, no pain or discomfort Physical Exam Vital Signs (Past 24 Hours): Last Vital Signs Temp 36.9 C 01/21/19 15:08 Pulse 81 01/21/19 15:08 Resp 16 01/21/19 15:08 BP 145/78 H 01/21/19 15:08 Pulse Ox 93 01/21/19 15:08 Constitutional: WD/WN, vitals as above cooperative and comfortable; no acute distress Eyes: PERRL, conjunctivae normal, anicteric sclerae ENMT: external ear and nose normal, oropharynx normal Respiratory: normal respiratory effort, lungs clear to auscultation Cardiovascular: RRR, no murmur, no edema Rate/Rhythm: regular rate and regular rhythm Vessels: normal peripheral pulses Extremities: no edema Gastrointestinal (Abdomen): normal bowel sounds, soft, nontender, no hepatosplenomegaly Inspection/Auscultation: normal bowel sounds Percussion/Palpation: abdomen soft; abdomen nontender, no guarding, abdomen not rigid, no abdominal mass and no ascites Musculoskeletal: no cyanosis or clubbing, extremities motor strength 5/5 Skin: no rashes, warm and dry Neurologic: PERRL, EOMI, accommodation nl, no face palsy, no dysarthria Psychiatric: A+Ox3, euthymic affect (Forgetful) Insight: + limited insight (1) UTI (urinary tract infection) Hematuria presence: without hematuria Urinary tract infection type: site unspecified Qualified Code(s): N39.0 - Urinary tract infection, site not specified (2) DM type 2 (diabetes mellitus, type 2) Diabetes mellitus complication status: with unspecified complications Diabetes mellitus jail insulin use: without watermelon inspector use Qualified Code(s): E11.8 - Type 2 diabetes mellitus with unspecified complications (3) Alzheimer disease Alzheimer's disease onset: unspecified onset Dementia behavioral disturbance: without behavioral disturbance Qualified Code(s): G30.9 - Alzheimer's disease, unspecified; F02.80 - Dementia in other diseases classified elsewhere without behavioral disturbance (4) Hypothyroidism Hypothyroidism type: unspecified Qualified Code(s): E03.9 - Hypothyroidism, unspecified (5) HTN (hypertension) Hypertension type: unspecified Qualified Code(s): I10 - Essential (primary) hypertension (6) Vomiting Nausea presence: unspecified Vomiting Intractability: unspecified Vomiting type: unspecified Qualified Code(s): R11.10 - Vomiting, unspecified
[2019-01-21] MEDS: DONEPEZIL HCL 5 MG TAB PO SCH (17:34)
[2019-01-21] MEDS: MIRTAZAPINE TAB 15 MG TAB PO SCH (21:16)
[2019-01-22] MEDS ORDERED: ZOLPIDEM TARTRATE 5 MG TAB PO PRN (00:05)
[2019-01-22] MEDS: ACETAMINOPHEN 325 MG TAB PO PRN (01:53)
[2019-01-22] MEDS: LEVOTHYROXINE SODIUM 50 MCG TABLET PO SCH (05:43)
[2019-01-22] MEDS: FERROUS SULFATE 325 MG TAB PO SCH (09:26)
[2019-01-22] MEDS: SUCRALFATE 1 GM/10 ML UDC PO SCH ×2 (09:26→12:46)
[2019-01-22] MEDS: INSULIN ASPART 100 UNITS/ML 3 ML PEN SC SCH ×2 (09:26→13:24)
[2019-01-22] MEDS: METOPROLOL SUCC 25MG EXT REL TAB PO SCH (09:27)
[2019-01-22] MEDS: METOCLOPRAMIDE HCL 5 MG TABLET PO SCH ×2 (09:27→12:46)
[2019-01-22] MEDS: SERTRALINE HCL 50 MG TABLET PO SCH (09:29)
[2019-01-22] MEDS: LISINOPRIL 20 MG TAB PO SCH (09:29)
[2019-01-22] MEDS: CEFEPIME 2,000 MG in SYRINGE 0 ML IV SCH (09:29)
--- NOTE | 2019-01-22 11:56 | XRay Report ---
XR KUB CLINICAL HISTORY: Abdominal distention COMPARISON STUDY: CT scan dated 01/16/2019 FINDINGS: There is contrast within nondilated colon. There are no transition zones to indicate bowel obstruction. There are surgical clips in the right upper quadrant consistent with a prior cholecystec brenda. There is a lumbar dextroscoliosis. There is a lytic focus within the right iliac wing. This has nonaggressive features. Postsurgical changes involve the left hip. There are extensive dense interst itial/micronodular opacities at both lung bases. IMPRESSION: No evidence of pathologic bowel dilatation. Electronically signed by: Walter Us M.D. 01/22/2019 11:55 AM
--- NOTE | 2019-01-22 12:31 | Hospitalist Progress Note ---
Date of Service January 22, 2019 Assessment & Plan (1) Left hip pain: H/O chronic left hip pain H/O Left hip ORIF Sustained a fall on left hip approx 2 months back Pain is well controlled --Left Hip MRI : No evidence for acute fracture within the pelvis or hips by MRI. Evaluation of the left femur compromised by susceptibility artifact from surgical hardware but no marrow edema to suggest fracture. Healed left femoral neck fracture. Increased T2 signal within the left iliacus and gluteal muscles which is nonspecific but may reflect mild muscular injury. Small pocket of fluid posterior to the left hip joint. This is probably chronic. --Needs PT/OT upon discharge --Advised to Follow up with Orthopedics as outpatient (2) UTI (urinary tract infection): Urine culture: Brown sensitive pseudomonas Completed 5 day course of IV cefepime (3) Vomiting: KUB:No signs of Obstruction Fu with GI as outpatient Possible Esophagitis: Recent EGD:esophagitis and a large duodenal diverticulum causing possible gastric outlet obstruction Patient underwent an upper GI series that did not demonstrate any current obstruction. Patient was started on PPI twice daily and Reglan. CT ABD:Moderate distal esophageal wall thickening associated with a small hiatal hernia No acute GI bleed Continue PPI BID Continue carafate, Reglan Gastroparesis diet--Low residue diet; Smaller, more frequent meals Needs Follow up with GI upon discharge May need gastric emptying study as outpatient (4) HTN (hypertension): Continue lisinopril, metoprolol (5) DM type 2 (diabetes mellitus, type 2): Hgb A1c 7.0 07/2018 Hold oral agents continue ISS while hospitalized (6) CKD (chronic kidney disease), stage III: MARII on CKD III: prerenal due to dehydration renal function improved with IV fluids monitor renal function (7) Dyslipidemia: Continue statin (8) Hypothyroidism: Continue levothyroxine (9) Anxiety: -Continue sertraline (10) Alzheimer disease: Continue donepezil (11) DVT prophylaxis: SCDs CODE STATUS: DNR/DNI DISPOSITION: Can return home with 24hr residential with home health /Home PT Subjective Patient is seen and examined at bedside Patient was nauseous after PT earlier today which later resolved Denies chest pain, SOB, dizziness, abd pain Offers no complaints, prefers to be discharged home Physical Exam Vital Signs (Past 24 Hours): Last Vital Signs Temp 36.3 C L 01/22/19 07:48 Pulse 83 01/22/19 07:48 Resp 16 01/22/19 07:48 BP 103/59 L 01/22/19 07:48 Pulse Ox 94 01/22/19 07:48 Physical Exam: Physical Exam: Vitals signs as noted above General Appearance:Moderately built and nourished, no apparent distress Head: normocephalic, Atraumatic Eyes: normal inspection, EOMI Neck: supple, Trachea midline Respiratory/Chest: Normal breath sounds, CTA Cardiovascular: S1, S2, No murmur Abdomen/GI:Soft, Non tender, Bowel sounds present Extremities/Musculoskelatal:normal inspection, no edema Neurologic/Psych:grossly no focal neurological deficits, forgetful Skin: normal color, warm (1) UTI (urinary tract infection) Urinary tract infection type: site unspecified Hematuria presence: without hematuria Qualified Code(s): N39.0 - Urinary tract infection, site not spe cified (2) Vomiting Vomiting type: unspecified Vomiting Intractability: unspecified Nausea presence: unspecified Qualified Code(s): R11.10 - Vomiting, unspecified (3) HTN (hypertension) Hypertension type: unspecified Qualified Code(s): I10 - Essential (primary) hypertension (4) DM type 2 (diabetes mellitus, type 2) Diabetes mellitus jail insulin use: without jail use Diabetes mellitus complication status: with unspecified complications Qualified Code(s): E11.8 - Type 2 diabetes mellitus with unspecified complications (5) Hypothyroidism Hypothyroidism type: unspecified Qualified Code(s): E03.9 - Hypothyroidism, unspecified (6) Alzheimer disease Alzheimer's disease onset: unspecified onset Dementia behavioral disturbance: without behavioral disturbance Qualified Code(s): G30.9 - Alzheimer's disease, unspecified; F02.80 - Dementia in other diseases classified elsewhere without behavioral disturbance
--- NOTE | 2019-01-22 13:03 | Discharge Summary ---
Date of Service January 22, 2019 Admission HPI Per Admitting Provider 83-year-old female who presents the ED with vomiting. Patient is accompanied by her caregiver, Suzy, who provides some history. Patient was recently admitted to [facility] 12/27 through 12/29 for similar symptoms. Patient underwent EGD that admission that demonstrated esophagitis and a large duodenal diverticulum causing possible gastric outlet obstruction. Patient underwent an upper GI series that did not demonstrate any current obstruction. Patient was started on PPI twice daily and Reglan. Since arriving home, patient's appetite has not improved and she has early satiety. She developed vomiting again last evening and has had several episodes since. Caregiver describes emesis as coffee-ground material. Stools are dark, however this is chronic secondary to iron replacement. No bright red bleeding per rectum. Patient denies abdominal pain and diarrhea. No chest pain or shortness of breath. She denies lightheadedness, dizziness, diaphoresis, syncopal events. No fevers or chills. Of note, patient was started on Macrobid as an outpatient on 01/14 for possible UTI. In the ED today, patient is hemodynamically stable and hemoglobin is 14.0. CT ABD/pelvis is showing distal esophageal wall thickening and is negative for other acute findings. Patient was given IVF, IV Protonix, p.o. Carafate. Admission Exam Per Admitting Provider Constitutional: WD/WN, vitals as above Eyes: PERRL, conjunctivae normal, anicteric sclerae ENMT: external ear and nose normal, oropharynx normal Respiratory: normal respiratory effort, lungs clear to auscultation Cardiovascular: Rate/Rhythm: regular rate and regular rhythm Vessels: normal peripheral pulses Extremities: no edema Gastrointestinal (Abdomen): normal bowel sounds, soft, nontender, no hepatosplenomegaly Musculoskeletal: no cyanosis or clubbing, extremities motor strength 5/5 Skin: no rashes, warm and dry Neurologic: PERRL, EOMI, accommodation nl, no face palsy, no dysarthria Psychiatric: A+Ox3, euthymic affect (Forgetful) Insight: + limited insight Principal Diagnosis Discharge Information Discharge Diagnosis NAUSEA /VOMITING /ESPOPHAGITIS UTI Discharge Goals Decrease discomfort,Improve disease control, Diagnostic testing Discharge Activity Limitations As commented below Discharge Data Allergies Allergy/AdvReac Type Severity Reaction Status Date / Time solifenacin [From Vesicare] Allergy Intermediate Hives Verified 01/16/19 15:08 ciprofloxacin AdvReac Severe DEMENTIA/CO Verified 01/16/19 15:08 NFUSION amlodipine AdvReac Intermediate EDEMA Verified 01/16/19 15:08 pravastatin [From Pravachol] AdvReac Intermediate ITCHY RASH Verified 01/16/19 15:08 Consultations 01/16/19 20:00 ED Decision to Admit Stat 01/16/19 21:26 Consult Case Management - Discharge Planning Routine Consult Gastroenterology Routine Procedures Performed CT ABD: 1. Chronic sigmoid diverticulosis with potential trace amount of superimposed acute diverticular change. 2. No evidence for abscess collection or obstruction. 3. Small bilateral renal cysts. 4. Diffuse bibasilar bronchiectatic and fibrotic change. 6. Moderate distal esophageal wall thickening associated with a small hiatal hernia. Hip MRI: 1. No evidence for acute fracture within the pelvis or hips by MRI. Evaluation of the left femur compromised by susceptibility artifact from surgical hardware but no marrow edema to suggest fracture. Healed left femoral neck fracture. 2. Increased T2 signal within the left iliacus and gluteal muscles which is nonspecific but may reflect mild muscular injury. 3. Small pocket of fluid posterior to the left hip joint. This is probably chronic. KUB: No evidence of pathologic bowel dilatation. Ordered Studies 01/16/19 15:26 CT abd pelvis oral and IV con Stat 01/19/19 14:37 MR hip LT wo con Routine Hospital Course (1) Left hip pain: H/O chronic left hip pain H/O Left hip ORIF Sustained a fall on left hip approx 2 months back Pain is well controlled --Left Hip MRI : No evidence for acute fracture within the pelvis or hips by MRI. Evaluation of the left femur compromised by susceptibility artifact from surgical hardware but no marrow edema to suggest fracture. Healed left femoral neck fracture. Increased T2 signal within the left iliacus and gluteal muscles which is nonspecific but may reflect mild muscular injury. Small pocket of fluid posterior to the left hip joint. This is probably chronic. --Needs PT/OT upon discharge --Advised to Follow up with Orthopedics as outpatient (2) UTI (urinary tract infection): Urine culture: Brown sensitive pseudomonas Completed 5 day course of IV cefepime (3) Vomiting: KUB:No signs of Obstruction Fu with GI as outpatient Possible Esophagitis: Recent EGD:esophagitis and a large duodenal diverticulum causing possible gastric outlet obstruction Patient underwent an upper GI series that did not demonstrate any current obstruction. Patient was started on PPI twice daily and Reglan. CT ABD:Moderate distal esophageal wall thickening associated with a small hiatal hernia No acute GI bleed Continue PPI BID Continue carafate, Reglan Gastroparesis diet--Low residue diet; Smaller, more frequent meals Needs Follow up with GI upon discharge May need gastric emptying study as outpatient (4) HTN (hypertension): Continue lisinopril, metoprolol (5) DM type 2 (diabetes mellitus, type 2): Hgb A1c 7.0 07/2018 Hold oral agents continue ISS while hospitalized (6) CKD (chronic kidney disease), stage III: MARII on CKD III: prerenal due to dehydration renal function improved with IV fluids monitor renal function (7) Dyslipidemia: Continue statin (8) Hypothyroidism: Continue levothyroxine (9) Anxiety: -Continue sertraline (10) Alzheimer disease: Continue donepezil (11) DVT prophylaxis: SCDs CODE STATUS: DNR/DNI DISPOSITION: Can return home with 24hr custodial with home health /Home PT Total Time Total Time Spent Total Time Spent (In Minutes): 37 minutes Total Time Includes: Examination of the Patient, Discharge Planning, Medication Reconciliation, Communication With Other Providers and Other Discharge Plan Discharge Items Patient Disposition: Home - Home Health Services Reason For Visit: NAUSEA,VOMITING Discharge Diagnosis: NAUSEA /VOMITING /ESPOPHAGITIS UTI Discharge Goals: Decrease discomfort, Diagnostic testing and Improve disease control Activity: As commented below Activity Comment: LEFT HIP WEIGHT TOLERATED WITH WALKER /PHYSICAL THERAPY Non-emergency contact: Primary Care Provider and Staff Electronic Warfare Officer Call non-emergency contact if: you have any medication questions, your symptoms worsen and you have a fever Follow-up/Referrals: Walter Knight MD [Primary Care Provider] - 01/23/19 2:05 pm Diet: Carb Consistent or DM2 and Low Fiber Diet Comment: SMALL PORTION/FREQUENT MEALS Addtl Provider Instructions: Follow up with your PCP on January 28, 2019 at 11:05AM Follow up with your sand sifter in 1-2 weeks Seek immediate medical attention if your symptoms reoccur or worsen Prescriptions: New sucralfate 100 mg/mL Suspension 1 gm PO ACHS Qty: 420 RF: 2 ondansetron HCl [Zofran] 4 mg tablet 4 mg PO Q8H PRN (Reason: nausea and vomiting) 30 Days Qty: 90 RF: 2 docusate sodium [Colace] 100 mg capsule 100 mg PO BID PRN (Reason: constipation ) 30 Days Qty: 60 RF: 0 polyethylene glycol 3350 [Miralax] 17 gram Powder In Packet 17 g PO DAILY PRN (Reason: constipation) 30 Days Qty: 30 RF: 0 Continued acetaminophen [Tylenol] 325 mg Tablet 325 mg PO Q8 PRN (Reason: Pain) RF: 0 donepezil 5 mg Tablet 5 mg PO QDD RF: 0 lisinopril 20 mg Tablet 20 mg PO DAILY RF: 0 cyproheptadine 4 mg Tablet 4 mg PO TID PRN (Reason: INCREASE APPETITE) RF: 0 metoclopramide HCl [Reglan] 5 mg Tablet 5 mg PO ACHS RF: 0 levothyroxine 50 mcg Tablet 50 mcg PO DAILYBB RF: 0 erythromycin 5 mg/gram (0.5 %) Ointment 1 applic OPHTHALMIC (EYE) DAILY PRN (Reason: REDNESS/IRRITATION) RF: 0 glimepiride 4 mg Tablet 4 mg PO DAILYBB RF: 0 calcium carbonate [Tums] 200 mg calcium (500 mg) Tablet,Chewable 200 mg PO DIRECTED PRN (Reason: INDIGESTION/HEARTBURN) RF: 0 omeprazole 20 mg Capsule,Delayed Release(Dr/Ec) 20 mg PO BID RF: 0 mirtazapine 15 mg Tablet 15 mg PO HS RF: 0 metoprolol succinate 25 mg Tablet Extended Release 24 Hr 25 mg PO DAILY RF: 0 sertraline 50 mg Tablet 50 mg PO DAILY RF: 0 ferrous sulfate 324 mg (65 mg iron) Tablet,Delayed Release (Dr/Ec) 324 mg PO DAILY RF: 0 Discontinued nitrofurantoin monohyd/m-cryst 100 mg Capsule 100 mg PO BID RF: 0 Stand-Alone Forms: [facility] Discharge Orders: Discharge Order (Routine); Ordered 01/22/19 Ordered By: Yury Moses Admission Data Admit Date/Time: 01/16/19 20:31 Attending Provider: Yury Moses Admit Provider: Rogerio Quezada Primary Care Provider: Walter Knight I. Other Providers: Rogerio Quezada ; Martin Harman ; Ida Nichols Service: Surgical Services Other Interventions: Discharge Summary Assessment (RN) Last Done: 01/22/19 13:20 Pending Studies at Discharge: No DC Date/Time DO NOT enter until pt leaves facility: 01/22/19 14:40
[2019-01-22] MEDS ORDERED: POLYETHYLENE (MIRALAX) 17 GM PACK PO PRN (13:04)
== END 2019-01-22 14:40 | disposition home health service (06) | DRG 392 ==
LOC: ED 12:42 → 3W 20:31 → SUATTDRO 20:31 → 3W 21:16